=== PATIENT | male | born 1965 ===

== ENCOUNTER 2021-12-20 18:30 | Inpatient (IN) | payer MEDICAID ==
--- NOTE | 2021-12-20 18:57 | Cat Scan Report ---
CT head/brain wo con INDICATION / CLINICAL INFORMATION: 56 years Male; Stroke symptoms. TECHNIQUE: Routine CT head without contrast. All CT scans at this location are performed using CT dos e reduction for ALARA by means of automated exposure control. Motion artifact present. COMPARISON: None. FINDINGS: BRAIN / INTRACRANIAL CONTENTS: No acute hemorrhage, mass effect, midline shift, hydrocephalus, or acu te, large territorial infarct. Mild to moderate, diffuse cerebral and mild cerebellar atrophy. Mild degree of hippocampal atrophy worthy ggested bilaterally. There are mild areas of decreased attenuation in the white matter of the cerebral hemispheres. These are nonspecific findings and may be related to microangiopathy (hypertension, diabetes, atheroscleros is), given the patient's age. It might be difficult to evaluate for small areas of ischemia without d iffusion imaging by MRI. Pontine disease noted. CRANIOCERVICAL JUNCTION: No significant abnormality. ORBITS: No significant abnormality of visualized orbits. SINUSES / MASTOIDS: Mild to moderate mucosal thickening in the ethmoids. There is also partial opacif ication of the mastoids. ADDITIONAL FINDINGS: Atherosclerotic disease is seen in the anterior and posterior circulation. IMPRESSION: 1. No focal mass, hemorrhage, hydrocephalus, or acute, large territorial infarct. CODE STROKE: Exam Completed (GEODESIST/CDT): 12/20/2021 5:44 PM Exam Reviewed (GEODESIST/CDT): 5:48 PM Time of Communication (GEODESIST/CDT): 5:51 PM Licensed Practitioner Receiving Report: Dr. Kent Signer Name: Bj Smith MD, III Signed: 12/20/2021 6:53 PM Workstation Name: [id number]
[2021-12-20 19:15] LABS: Basophils # (Auto) 0.1 K/mm3 (0.0-0.1); Basophils % (Auto) 0.9 % (0.0-1.8); Eosinophils % (Auto) 11.3 % (0.0-4.3); Hematocrit 32.1 % (35.5-45.6); Hemoglobin 10.3 gm/dl (11.8-15.2); Lymphocytes % (Auto) 11.7 % (13.4-35.0); Mean Corpuscular HGB Conc 32 % (32-34); Mean Corpuscular Volume 81 fl (84-94); Monocytes # (Auto) 0.4 K/mm3 (0.0-0.8); Monocytes % (Auto) 4.6 % (0.0-7.3); Platelet Count 446 K/mm3 (140-440); Red Blood Count 3.96 M/mm3 (3.65-5.03); Red Cell Distribution Width 17.4 % (13.2-15.2)
[2021-12-20 19:24] LABS: INR 1.04 (0.87-1.13)
--- NOTE | 2021-12-20 19:24 | Emergency Department Report ---
ED Altered Mental Status HPI - General Chief Complaint: Hypoglycemia Stated Complaint: POSS CVA Time Seen by Provider: 12/20/21 18:33 Source: EMS Mode of arrival: Stretcher Limitations: Language Barrier - History of Present Illness Initial Comments: Patient is 56 years old male with history of diabetes, hypertension, chronic kidney disease, seizure and bilateral below-knee amputation. Patient brought to the emergency room via EMS from home for evaluation of altered mental status. According to the EMS report that patient has been evaluated by EMS twice today for similar symptoms. EMS stated that initially his blood sugar was 45 he was given D50 and refused to come to the hospital. Second time blood pressure was 60 and he was been given D50 with his blood pressure going to 250 however patient still with altered mental status. EMS reported that patient had a generalized tonic-clonic seizure for which patient received 2 mg of Ativan. Upon arrival to the ER patient is alert however he is altered unable to answer question appropriately. Code stroke immediately initiated and patient examined by Dr. Rios. Patient also had a stat CT brain without contrast which was negative for acute finding. MD Complaint: altered mental status, confusion, decreased responsiveness -: This morning Severity: severe Consistency of Symptoms: waxing and waning Context: diabetes - Related Data Allergies Allergy/AdvReac Type Severity Reaction Status Date / Time Unable to Assess Allergy Unverified 12/20/21 19:17 ED Review of Systems ROS: Stated complaint: POSS CVA Other details as noted in HPI Comment: Unobtainable due to pts medical conditions ED Past Medical Hx - Past Medical History Previous Medical History?: Yes Hx Hypertension: Yes Hx Diabetes: Yes - Surgical History Past Surgical History?: Yes Additional Surgical History: bilateral BKA - Social History Smoking Status: Unknown if ever smoked ED Physical Exam - General Limitations: Language Barrier General appearance: alert, in no apparent distress - Head Head exam: Present: atraumatic, normocephalic, normal inspection - Eye Eye exam: Present: normal appearance - ENT ENT exam: Present: normal exam, normal orophraynx, mucous membranes moist - Neck Neck exam: Present: normal inspection, full ROM. Absent: tenderness, meningismus - Respiratory Respiratory exam: Present: normal lung sounds bilaterally - Cardiovascular Cardiovascular Exam: Present: bradycardia - GI/Abdominal GI/Abdominal exam: Present: soft, normal bowel sounds. Absent: distended, te nderness, guarding, rebound, rigid, mass, bruit, pulsatile mass, hernia - Neurological Exam Neurological exam: Present: alert, altered - Psychiatric Psychiatric exam: Present: flat affect - Skin Skin exam: Present: warm, dry, intact, normal color ED Course Vital Signs 12/20/21 12/20/21 12/20/21 19:03 19:13 20:31 Temperature 94.3 F L 93.7 F L Pulse Rate 59 L Respiratory 13 Rate Blood Pressure 129/68 O2 Sat by Pulse 100 100 Oximetry - Lab Data Result diagrams: 12/20/21 Unknown 12/20/21 Unknown Lab Results 12/20/21 12/20/21 12/20/21 Range/Units Unknown Unknown Unknown WBC 9.0 (4.5-11.0) K/mm3 RBC 3.96 (3.65-5.03) M/mm3 Hgb 10.3 L (11.8-15.2) gm/dl Hct 32.1 L (35.5-45.6) % MCV 81 L (84-94) fl MCH 26 L (28-32) pg MCHC 32 (32-34) % RDW 17.4 H (13.2-15.2) % Plt Count 446 H (140-440) K/mm3 Lymph % (Auto) 11.7 L (13.4-35.0) % [place] % (Auto) 4.6 (0.0-7.3) % Eos % (Auto) 11.3 H (0.0-4.3) % Baso % (Auto) 0.9 (0.0-1.8) % Lymph # (Auto) 1.0 L (1.2-5.4) K/mm3 [place] # (Auto) 0.4 (0.0-0.8) K/mm3 Eos # (Auto) 1.0 H (0.0-0.4) K/mm3 Baso # (Auto) 0.1 (0.0-0.1) K/mm3 Seg Neutrophils % 71.5 H (40.0-70.0) % Seg Neutrophils # 6.4 (1.8-7.7) K/mm3 PT 14.8 (12.2-14.9) Sec. INR 1.04 (0.87-1.13) APTT 38.6 H (24.2-36.6) Sec. Thrombin Time 18.8 (15.1-19.6) Sec. Sodium 142 (137-145) mmol/L Potassium 3.9 (3.6-5.0) mmol/L Chloride 101.8 (98-107) mmol/L Carbon Dioxide 22 (22-30) mmol/L Anion Gap 22 mmol/L BUN 51 H (9-20) mg/dL Creatinine 4.6 H (0.8-1.3) mg/dL Estimated GFR 13 ml/min BUN/Creatinine Ratio 11 % Glucose 86 (75-100) mg/dL Calcium 8.0 L (8.4-10.2) mg/dL Total Creatine Kinase 74 (55-170) units/L CK-MB (CK-2) 5.3 H (0.0-4.0) ng/mL CK-MB (CK-2) Rel Index 7.1 H (0-4) Troponin T 0.095 H (0.00-0.029) ng/mL Plasma/Serum Alcohol (0-0.07) % // Range/Units Unknown WBC (4.5-11.0) K/mm3 RBC (3.65-5.03) M/mm3 Hgb (11.8-15.2) gm/dl Hct (35.5-45.6) % MCV (84-94) fl MCH (28-32) pg MCHC (32-34) % RDW (13.2-15.2) % Plt Count (140-440) K/mm3 Lymph % (Auto) (13.4-35.0) % [place] % (Auto) (0.0-7.3) % Eos % (Auto) (0.0-4.3) % Baso % (Auto) (0.0-1.8) % Lymph # (Auto) (1.2-5.4) K/mm3 [place] # (Auto) (0.0-0.8) K/mm3 Eos # (Auto) (0.0-0.4) K/mm3 Baso # (Auto) (0.0-0.1) K/mm3 Seg Neutrophils % (40.0-70.0) % Seg Neutrophils # (1.8-7.7) K/mm3 PT (12.2-14.9) Sec. INR (0.87-1.13) APTT (24.2-36.6) Sec. Thrombin Time (15.1-19.6) Sec. Sodium (137-145) mmol/L Potassium (3.6-5.0) mmol/L Chloride (98-107) mmol/L Carbon Dioxide (22-30) mmol/L Anion Gap mmol/L BUN (9-20) mg/dL Creatinine (0.8-1.3) mg/dL Estimated GFR ml/min BUN/Creatinine Ratio % Glucose (75-100) mg/dL Calcium (8.4-10.2) mg/dL Total Creatine Kinase (55-170) units/L CK-MB (CK-2) (0.0-4.0) ng/mL CK-MB (CK-2) Rel Index (0-4) Troponin T (0.00-0.029) ng/mL Plasma/Serum Alcohol < 0.01 (0-0.07) % - EKG Data -: EKG Interpreted by Ct EKG shows normal: sinus rhythm Rate: bradycardia Interpretation: no acute changes - Radiology Data Radiology results: report reviewed - Medical Decision Making Patient is 56 years old male with history of insulin-dependent diabetes, hypertension, chronic kidney disease, seizure and bilateral below-knee amputation. Patient brought to the emergency room via EMS from home for olegario luation of altered mental status. According to the EMS report that patient has been evaluated by EMS twice today for similar symptoms. EMS stated that initially his blood sugar was 45 he was given D50 and refused to come to the hospital. Second time blood pressure was 60 and he was been given D50 with his blood pressure going to 250 however patient still with altered mental status. EMS reported that patient had a generalized tonic-clonic seizure for which patient received 2 mg of Ativan. Upon arrival to the ER patient is alert however he is altered unable to answer question appropriately. Code stroke immediately initiated and patient examined by Dr. Rios. Patient also had a stat CT brain without contrast which was negative for acute finding. Patient blood glucose also dropped to 60 in the emergency room patient received dextrose 50. Patient also started on dextrose 10% at 150 mL/h. Labs reviewed and showed a creatinine of 4.5. Troponin slightly elevated however this is most likely related to elevated creatinine. EKG is unremarkable. Patient sister arrived and able to provide more history. She stated that patient was in [place] and because of his bilateral knee amputation she decided to move him with her here in [place]. She stated that he had a right sided stroke last year. She also reports that he had history of seizure. She stated that he was admitted to another hospital 2 weeks ago for seizure and found that he has chronic kidney disease. She brought a medication list that did not show insulin however showed glipizide. I discussed the patient with Dr. Burns, he agreed to admit the patient to medical service for further management. Critical Care Time: Yes Critical care time in (mins) excluding proc time.: 35 Critical care attestation.: If time is entered above; I have spent that time in minutes in the direct care of this critically ill patient, excluding procedure time. ED Disposition Clinical Impression: Acute metabolic encephalopathy due to hypoglycemia, Seizure Disposition: ADMITTED INPATIENT Is pt being admited?: Yes Condition: Stable Referrals: PRIMARY CARE, [Primary Care Provider] - 3-5 Days
[2021-12-20 19:25] LABS: Partial Thromboplastin Time 38.6 Sec. (24.2-36.6); Thrombin Time 18.8 Sec. (15.1-19.6)
[2021-12-20 19:29] LABS: Creatine Kinase MB 5.3 ng/mL (0.0-4.0)
[2021-12-20] MEDS ORDERED: SODIUM CHLORIDE 0.9% 1000 ML 1,000 ML IV ONE (19:44)
[2021-12-20] MEDS ORDERED: DEXTROSE 10% IN WATER 1,000 ML IV SCH ×2 (20:00→22:00)
[2021-12-20] MEDS ORDERED: DEXTROSE 50% IN WATER (25GM) 50 ML SYRINGE IV ONE ×4 (20:09→20:20)
[2021-12-20] MEDS ORDERED: levETIRAcetam 1000 MG/NS 0.75% 1,000 MG/100 ML BAG IV ONE (20:34)
[2021-12-20] MEDS ORDERED: ACETAMINOPHEN 325 MG TAB PO PRN (21:51)
[2021-12-20] MEDS ORDERED: DEXTROSE 50% IN WATER (25GM) 50 ML SYRINGE IV PRN (21:51)
[2021-12-20] MEDS ORDERED: ALBUTEROL 2.5 MG/3 ML NEBU IH PRN (21:51)
[2021-12-20] MEDS ORDERED: ONDANSETRON 4 MG/2 ML INJ IV PRN (21:51)
[2021-12-20] MEDS ORDERED: HYDROmorphone 1 MG/1 ML INJ IV PRN (21:51)
--- NOTE | 2021-12-20 22:00 | History and Physical Report ---
History of Present Illness Date of examination: 12/20/21 Date of admission: 12/20/21 Chief complaint: Altered mental status Hypoglycemia History of present illness: 56 years old male with history of diabetes, hypertension, chronic kidney disease, seizure and bilateral below-knee amputation was brought to the emergency room via EMS from home for evaluation of altered mental status. According to the EMS report that patient has been evaluated by EMS twice today for similar symptoms. EMS stated that initially his blood sugar was 45 he was given D50 and refused to come to the hospital. Second time blood pressure was 60 and he was been given D50 with his blood pressure going to 250 however patient still with altered mental status. EMS reported that patient had a generalized tonic-clonic seizure for which patient received 2 mg of Ativan. Upon arrival to the ER patient is alert however he is altered unable to answer question appropriately. Code stroke immediately initiated and patient examined by Dr. Rios. Patient also had a stat CT brain without contrast which was negative for acute finding. In the emergency room patient blood glucose is 86 so going to admit the patient we will put the patient on D10 at the rate of 125 cc/h we will hold her diabetic medication will consult neurology for evaluation Past History Past Medical History: diabetes, hypertension, renal failure, seizures Past Surgical History: Other (Bilateral below-knee amputation) Social history: other (Unknown if ever smoked) Family history: no significant family history Medications and Allergies Allergies Allergy/AdvReac Type Severity Reaction Status Date / Time Unable to Assess Allergy Unverified 12/20/21 19:17 Active Meds: Active Medications Acetaminophen (Acetaminophen 325 Mg Tab) 650 mg PO Q4H PRN PRN Reason: Pain MILD(1-3)/Fever >100.5/MELTON Albuterol (Albuterol 2.5 Mg/3 Ml Nebu) 2.5 mg IH Q3HRT PRN PRN Reason: Shortness Of Breath Albuterol/Ipratropium (Ipratropium/Albuterol Sulfate 3 Ml Ampul.Neb) 1 ampul IH Q6HRT [facility] Dextrose (Dextrose 50% In Water (25gm) 50 Ml Syringe) 50 ml IV Q30MIN PRN; Protocol PRN Reason: Hypoglycemia Famotidine (Famotidine 20 Mg/2 Ml Inj) 20 mg IV BID [facility] Heparin Sodium (Porcine) (Heparin 5,000 Unit/1 Ml Vial) 5,000 unit SUB-Q Q12HR [facility] Hydromorphone HCl (Hydromorphone 1 Mg/1 Ml Inj) 0.5 mg IV Q3H PRN PRN Reason: Pain , Severe (7-10) Dextrose (D10w) 1,000 mls @ 150 mls/hr IV DIRECT ROSEND[facility] Dextrose (D10w) 1,000 mls @ 125 mls/hr IV DIRECT [facility] Insulin Human Lispro (Insulin Lispro 100 Unit/Ml) 0 unit SUB-Q Q6HR [facility]; Protocol Morphine Sulfate (Morphine 2 Mg/1 Ml Inj) 2 mg IV Q4H PRN PRN Reason: Pain, Moderate (4-6) Ondansetron HCl (Ondansetron 4 Mg/2 Ml Inj) 4 mg IV Q8H PRN PRN Reason: Nausea And Vomiting Sodium Chloride (Sodium Chloride 0.9% 10 Ml Flush Syringe) 10 ml IV BID ROSEND[facility] Sodium Chloride (Sodium Chloride 0.9% 10 Ml Flush Syringe) 10 ml IV PRN PRN PRN Reason: LINE FLUSH Review of Systems All systems: negative Constitutional: fatigue, malaise, lethargy Neurological: change in mentation, confusion, other (Unresponsiveness) Exam - Constitutional Vitals: Temp Pulse Resp BP Pulse Ox 93.7 F L 59 L 13 129/68 100 12/20/21 20:31 12/20/21 19:03 12/20/21 19:03 12/20/21 19:03 12/20/21 19:13 General appearance: Present: mild distress, cachectic - EENT Eyes: Present: PERRL ENT: hearing intact, clear oral mucosa - Neck Neck: Present: supple, normal ROM - Respiratory Respiratory effort: normal Respiratory: bilateral: diminished - Cardiovascular Heart Sounds: Present: S1 & S2. Absent: rub, click - Extremities Extremities: pulses symmetrical, No edema Peripheral Pulses: within normal limits - Abdominal General gastrointestinal: Present: soft, non-tender, non-distended, normal bowel sounds Male genitourinary: Present: normal - Integumentary Integumentary: Present: clear, warm, dry - Musculoskeletal Musculoskeletal: gait normal, strength equal bilaterally - Psychiatric Psychiatric: other (Patient is altered mental status) - Neurologic Neurologic: CNII-XII intact, moves all extremities, other (Patient is altered mental status) HEART Score - HEART Score Troponin: Troponin T 0.095 ng/mL (0.00-0.029) H 12/20/21 Unknown Results - Labs CBC & Chem 7: 12/20/21 Unknown 12/20/21 Unknown Labs: Laboratory Last Values WBC 9.0 K/mm3 (4.5-11.0) 12/20/21 Unknown RBC 3.96 M/mm3 (3.65-5.03) 12/20/21 Unknown Hgb 10.3 gm/dl (11.8-15.2) L 12/20/21 Unknown Hct 32.1 % (35.5-45.6) L 12/20/21 Unknown MCV 81 fl (84-94) L 12/20/21 Unknown MCH 26 pg (28-32) L 12/20/21 Unknown MCHC 32 % (32-34) 12/20/21 Unknown RDW 17.4 % (13.2-15.2) H 12/20/21 Unknown Plt Count 446 K/mm3 (140-440) H 12/20/21 Unknown Lymph % (Auto) 11.7 % (13.4-35.0) L 12/20/21 Unknown [place] % (Auto) 4.6 % (0.0-7.3) 12/20/21 Unknown Eos % (Auto) 11.3 % (0.0-4.3) H 12/20/21 Unknown Baso % (Auto) 0.9 % (0.0-1.8) 12/20/21 Unknown Lymph # (Auto) 1.0 K/mm3 (1.2-5.4) L 12/20/21 Unknown [place] # (Auto) 0.4 K/mm3 (0.0-0.8) 12/20/21 Unknown Eos # (Auto) 1.0 K/mm3 (0.0-0.4) H 12/20/21 Unknown Baso # (Auto) 0.1 K/mm3 (0.0-0.1) 12/20/21 Unknown Seg Neutrophils % 71.5 % (40.0-70.0) H 12/20/21 Unknown Seg Neutrophils # 6.4 K/mm3 (1.8-7.7) 12/20/21 Unknown PT 14.8 Sec. (12.2-14.9) 12/20/21 Unknown INR 1.04 (0.87-1.13) 12/20/21 Unknown APTT 38.6 Sec. (24.2-36.6) H 12/20/21 Unknown Thrombin Time 18.8 Sec. (15.1-19.6) 12/20/21 Unknown Sodium 142 mmol/L (137-145) 12/20/21 Unknown Potassium 3.9 mmol/L (3.6-5.0) 12/20/21 Unknown Chloride 101.8 mmol/L (98-107) 12/20/21 Unknown Carbon Dioxide 22 mmol/L (22-30) 12/20/21 Unknown Anion Gap 22 mmol/L 12/20/21 Unknown BUN 51 mg/dL (9-20) H 12/20/21 Unknown Creatinine 4.6 mg/dL (0.8-1.3) H 12/20/21 Unknown Estimated GFR 13 ml/min 12/20/21 Unknown BUN/Creatinine Ratio 11 % 12/20/21 Unknown Glucose 86 mg/dL (75-100) 12/20/21 Unknown Lactic Acid 1.80 mmol/L (0.7-2.0) 12/20/21 21:07 Calcium 8.0 mg/dL (8.4-10.2) L 12/20/21 Unknown Total Creatine Kinase 74 units/L (55-170) 12/20/21 Unknown CK-MB (CK-2) 5.3 ng/mL (0.0-4.0) H 12/20/21 Unknown CK-MB (CK-2) Rel Index 7.1 (0-4) H 12/20/21 Unknown Troponin T 0.095 ng/mL (0.00-0.029) H 12/20/21 Unknown Plasma/Serum Alcohol < 0.01 % (0-0.07) 12/20/21 Unknown - Imaging and Cardiology CT Scan - head: report reviewed Assessment and Plan VTE prophylaxis?: Chemical Plan of care discussed with patient/family: Yes - Patient Problems (1) Acute metabolic encephalopathy due to hypoglycemia Current Visit: Yes Status: Acute Plan to address problem: Admit the patient to the medical telemetry. Metabolic encephalopathy due to h ypoglycemia and chronic kidney disease. We put the patient on D10 at the rate of 125 cc/h. Oxygen by nasal cannula 3 L/min DuoNeb by nebulizer every 4 hours. Reconsult neurology for evaluation. Recheck CBC BMP in the morning (2) Hypoglycemia Current Visit: Yes Status: Acute Plan to address problem: We put the patient on D10 at the rate of 125 cc/h. Oxygen by nasal cannula 3 L/min DuoNeb by nebulizer every 4 hours. Reconsult neurology for evaluation. Recheck CBC BMP in the morning (3) Diabetes Current Visit: Yes Status: Acute Plan to address problem: Humalog sliding scale every 6 hours with low-dose coverage. Diabetic education. Recheck BMP in the morning (4) Hypertension Current Visit: Yes Status: Acute Plan to address problem: Hydralazine 10 mg IV every 6 hours as needed. We will monitor the blood pressure closely (5) Acute kidney injury superimposed on CKD Current Visit: Yes Status: Acute Plan to address problem: Avoid nephrotoxic drug. Renally dose medication. D5 W at the rate of 125 cc/h. Recheck BMP in the morning. Nephrology consult (6) Seizure Current Visit: Yes Status: Acute Plan to address problem: Stable. We will continue the home medication. EEG. Will consult neurology for evaluation we also check ammonia level. (7) DVT prophylaxis Current Visit: Yes Status: Acute Plan to address problem: Heparin 5000 units subcu every 12 hours for DVT prophylaxis. Pepcid 20 mg IV every 12 hours for GI prophylaxis. Patient is a full code
[2021-12-21] MEDS: FAMOTIDINE 20 MG/2 ML INJ IV SCH ×2 (01:19→15:13)
[2021-12-21] MEDS: HEPARIN 5,000 UNIT/1 ML VIAL SUB-Q SCH ×3 (01:19→22:34)
[2021-12-21] MEDS: INSULIN LISPRO 100 UNIT/ML SUB-Q SCH ×2 (01:23→05:23)
[2021-12-21] MEDS: IPRATROPIUM/ALBUTEROL SULFATE 3 ML AMPUL.NEB IH SCH ×6 (01:30→21:00)
[2021-12-21 05:27] LABS: Basophils # (Auto) 0.1 K/mm3 (0.0-0.1); Basophils % (Auto) 0.9 % (0.0-1.8); Eosinophils % (Auto) 9.3 % (0.0-4.3); Hematocrit 30.4 % (35.5-45.6); Hemoglobin 9.8 gm/dl (11.8-15.2); Lymphocytes # (Auto) 1.4 K/mm3 (1.2-5.4); Lymphocytes % (Auto) 13.1 % (13.4-35.0); Mean Corpuscular HGB Conc 32 % (32-34); Mean Corpuscular Volume 81 fl (84-94); Monocytes # (Auto) 0.7 K/mm3 (0.0-0.8); Monocytes % (Auto) 6.7 % (0.0-7.3); Platelet Count 424 K/mm3 (140-440); Red Blood Count 3.75 M/mm3 (3.65-5.03)
[2021-12-21 05:46] LABS: Calcium 7.7 mg/dL (8.4-10.2)
--- NOTE | 2021-12-21 08:39 | Consultation ---
History of Present Illness - Reason for Consult Consult date: 12/21/21 acute renal failure, chronic renal failure - History of Present Illness This is a 56 year old male who was brought into the hospital via EMS for Altered mental status. Patient was found to be hypoglycemic with blood glucose levels in 40-60's. Patient was treated with D50 drip. Pertinent labs also revealed an elevated serum creatinine of 4.6. Baseline serum creatinine unknown. Patient have history of Hypertension, Diabetes Mellitus, Seizure and Bilateral BKA. We are being consulted for management of this patient's severe renal failure. Past History Past Medical History: diabetes, hypertension, renal failure, seizures Past Surgical History: Other (Bilateral below-knee amputation) Social history: other (Unknown if ever smoked) Family history: no significant family history Medications and Allergies Allergies Allergy/AdvReac Type Severity Reaction Status Date / Time Unable to Assess Allergy Unverified 12/20/21 19:17 Active Meds: Active Medications Acetaminophen (Acetaminophen 325 Mg Tab) 650 mg PO Q4H PRN PRN Reason: Pain MILD(1-3)/Fever >100.5/MELTON Albuterol (Albuterol 2.5 Mg/3 Ml Nebu) 2.5 mg IH Q3HRT PRN PRN Reason: Shortness Of Breath Albuterol/Ipratropium (Ipratropium/Albuterol Sulfate 3 Ml Ampul.Neb) 1 ampul IH Q6HRT [facility] Last Admin: 12/21/21 08:32 Dose: 1 ampul Dextrose (Dextrose 50% In Water (25gm) 50 Ml Syringe) 50 ml IV Q30MIN PRN; Protocol PRN Reason: Hypoglycemia Famotidine (Famotidine 20 Mg/2 Ml Inj) 20 mg IV QAM [facility] Last Admin: 12/21/21 01:19 Dose: Not Given Heparin Sodium (Porcine) (Heparin 5,000 Unit/1 Ml Vial) 5,000 unit SUB-Q Q12HR [facility] Last Admin: 12/21/21 01:19 Dose: Not Given Hydromorphone HCl (Hydromorphone 1 Mg/1 Ml Inj) 0.5 mg IV Q3H PRN PRN Reason: Pain , Severe (7-10) Morphine Sulfate (Morphine 2 Mg/1 Ml Inj) 2 mg IV Q4H PRN PRN Reason: Pain, Moderate (4-6) Ondansetron HCl (Ondansetron 4 Mg/2 Ml Inj) 4 mg IV Q8H PRN PRN Reason: Nausea And Vomiting Sodium Chloride (Sodium Chloride 0.9% 10 Ml Flush Syringe) 10 ml IV BID [facility] Last Admin: 12/21/21 01:20 Dose: 10 ml Sodium Chloride (Sodium Chloride 0.9% 10 Ml Flush Syringe) 10 ml IV PRN PRN PRN Reason: LINE FLUSH Review of Systems ROS unobtainable: due to mental status Exam - Vital Signs Vital signs: Vital Signs Pulse Ox 100 12/20/21 18:53 - General Appearance General appearance: fatigue EENT: ATNC, PERRL Neck: Present: neck supple, trachea midline Respiratory: Decreased Breath Sounds Heart: S1S2 Gastrointestinal: Present: normoactive bowel sounds Neurologic: other (Awake) Musculoskeletal: Present: other (Bilateral BKA) Results - Lab Results 12/21/21 04:56 12/21/21 04:56 Most recent lab results Calcium 7.7 mg/dL (8.4-10.2) L 12/21/21 04:56 Assessment and Plan Assessment: Severe Renal Failure, questionable CKD S/P Hypoglycemia AMS Hypertension Diabetes Mellitus Anemia Plan: Renal labs reviewed. Serum creatinine 4.4 today, prior was 4.6. Baseline serum creatinine unknown. No urine output recorded. Ordered Strict I/O's daily and ordered bladder scan. Has history of DM And HTN so could have advanced CKD Will obtain urine lytes, protein and eosinophils Will obtain renal ultrasound Start NS@ 75 ml/hr Avoid nephrotoxic agents Renally dose medications Strict I/O's daily Obtain daily weights May need hemodialysis initiation if renal function shows no improvement or worsen Will monitor renal function closely Plan of care reviewed by Dr. Barbosa
[2021-12-21] MEDS ORDERED: SODIUM CHLORIDE 0.9% 1000 ML 1,000 ML IV SCH (09:30)
--- NOTE | 2021-12-21 10:13 | Consultation ---
History of Present Illness Consult date: 12/21/21 Reason for Consult: AMS Chief complaint: The patient was admitted for AMS , reviewed admitting notes , There is some improvement per patient is speaking like has had dysarthia . Past History Past Medical History: diabetes, hypertension, renal failure, seizures Past Surgical History: Other (Bilateral below-knee amputation) Social history: other (Unknown if ever smoked) Family history: no significant family history Medications and Allergies Allergies Allergy/AdvReac Type Severity Reaction Status Date / Time Unable to Assess Allergy Unverified 12/20/21 19:17 Active Meds: Active Medications Acetaminophen (Acetaminophen 325 Mg Tab) 650 mg PO Q4H PRN PRN Reason: Pain MILD(1-3)/Fever >100.5/MELTON Albuterol (Albuterol 2.5 Mg/3 Ml Nebu) 2.5 mg IH Q3HRT PRN PRN Reason: Shortness Of Breath Albuterol/Ipratropium (Ipratropium/Albuterol Sulfate 3 Ml Ampul.Neb) 1 ampul IH Q6HRT [facility] Last Admin: 12/21/21 08:32 Dose: 1 ampul Dextrose (Dextrose 50% In Water (25gm) 50 Ml Syringe) 50 ml IV Q30MIN PRN; Protocol PRN Reason: Hypoglycemia Famotidine (Famotidine 20 Mg/2 Ml Inj) 20 mg IV QAM [facility] Last Admin: 12/21/21 01:19 Dose: Not Given Heparin Sodium (Porcine) (Heparin 5,000 Unit/1 Ml Vial) 5,000 unit SUB-Q Q12HR [facility] Last Admin: 12/21/21 01:19 Dose: Not Given Hydromorphone HCl (Hydromorphone 1 Mg/1 Ml Inj) 0.5 mg IV Q3H PRN PRN Reason: Pain , Severe (7-10) Sodium Chloride (Nacl 0.9% 1000 Ml) 1,000 mls @ 75 mls/hr IV DIRECT [facility] Morphine Sulfate (Morphine 2 Mg/1 Ml Inj) 2 mg IV Q4H PRN PRN Reason: Pain, Moderate (4-6) Ondansetron HCl (Ondansetron 4 Mg/2 Ml Inj) 4 mg IV Q8H PRN PRN Reason: Nausea And Vomiting Sodium Chloride (Sodium Chloride 0.9% 10 Ml Flush Syringe) 10 ml IV BID [facility] Last Admin: 12/21/21 01:20 Dose: 10 ml Sodium Chloride (Sodium Chloride 0.9% 10 Ml Flush Syringe) 10 ml IV PRN PRN PRN Reason: LINE FLUSH Physical Examination - Vital Signs Vital Signs: Vital Signs Pulse Ox 100 12/20/21 18:53 - Physical Exam Narrative exam: The patient is alert , there is dysarthria, The patient is able to move all 4 extremity , there is amputation in the right LE , gait is not tested . Results - Laboratory Findings CBC and BMP: 12/21/21 04:56 12/21/21 04:56 Abnormal Lab Findings: Abnormal Labs 12/20/21 12/20/21 12/20/21 23:02 Unknown Unknown Hgb 10.3 L Hct 32.1 L MCV 81 L MCH 26 L RDW 17.4 H Plt Count 446 H Lymph % (Auto) 11.7 L Eos % (Auto) 11.3 H Lymph # (Auto) 1.0 L Eos # (Auto) 1.0 H Seg Neutrophils % 71.5 H APTT 38.6 H BUN Creatinine Glucose POC Glucose 171 H Calcium CK-MB (CK-2) CK-MB (CK-2) Rel Index Troponin T 12/20/21 12/21/21 12/21/21 Unknown 04:56 04:56 Hgb 9.8 L Hct 30.4 L MCV 81 L MCH 26 L RDW 17.0 H Plt Count Lymph % (Auto) 13.1 L Eos % (Auto) 9.3 H Lymph # (Auto) Eos # (Auto) 1.0 H Seg Neutrophils % APTT BUN 51 H 48 H Creatinine 4.6 H 4.4 H Glucose 132 H POC Glucose Calcium 8.0 L 7.7 L CK-MB (CK-2) 5.3 H CK-MB (CK-2) Rel Index 7.1 H Troponin T 0.095 H 12/21/21 05:21 Hgb Hct MCV MCH RDW Plt Count Lymph % (Auto) Eos % (Auto) Lymph # (Auto) Eos # (Auto) Seg Neutrophils % APTT BUN Creatinine Glucose POC Glucose 150 H Calcium CK-MB (CK-2) CK-MB (CK-2) Rel Index Troponin T Assessment and Plan 1. Encephalopathy - AMS rule out CVA since there is dysarthria . 2. Continue All Home Medications . 3. Minimize Sedation . 4. MRI Brain no contrast. 5. Call Back with Questions . Dr. Garcia
--- NOTE | 2021-12-21 12:33 | Ultrasound Report ---
ULTRASOUND RENAL INDICATION / CLINICAL INFORMATION: renal failure. COMPARISON: None available. FINDINGS: RIGHT KIDNEY: Length = 10.4 cm. - Echogenicity: Mildly echogenic. - Parenchymal Thickness: Normal. - Hydronephrosis: None. - Cyst / Mass: None. - Stones: None seen. LEFT KIDNEY: Length = 11.9 cm. - Echogenicity: Normal. - Parenchymal Thickness: Normal. - Hydronephrosis: None. - Cyst / Mass: None. - Stones: None seen. URINARY BLADDER: Layering debris/proteinaceous material with no bladder wall thickening or obvious ma ss. No obvious stone disease. FREE FLUID: None. ADDITIONAL FINDINGS: None. IMPRESSION: 1. Abnormal appearance of the urinary bladder containing layering debris/proteinaceous material which could represent blood products or infectious material. The bladder otherwise appears unremarkable wi th no wall thickening or mass. 2. Slightly echogenic appearance of the right kidney compared to the left can be seen with medical re nal disease or prior insult. Signer Name: Jerardo Schuster MD Signed: 12/21/2021 12:29 PM Workstation Name: [id number]
--- NOTE | 2021-12-21 13:49 | Progress Note ---
Assessment and Plan Assessment and plan: #Acute metabolic encephalopathy #[id number] type 2 diabetes mellitus with hyperglycemia #Seizure disorder #Acute cystitis with purulence Multifactorial etiology including hypoglycemia (that originally required D50 x2), seizures, and acute cystitis -CT head noncontrast unremarkable. Pending MRI brain to rule out possible CVA in the setting of dysarthria. Pending blood culture, urinalysis, and urine culture. Starting Rocephin 2 g every 24 hours in the setting of purulent discharge from penis. Continue IV fluid resuscitation and telemetry. Discontinued insulin regiment. Blood glucose goal [id number] while inpatient. Neurology consulted; appreciate recs. Will call family to determine seizure medication. Continue to monitor #TO on CKD stage IV -Creatinine 4.4 (baseline unknown) Nephrology consulted; appreciate recs. Renally dose medications, avoid nephrotoxic drugs, and continue renal diet. #Microcytic anemia Hemoglobin 9.8 Pending iron and TIBC studies. Transfuse if hemoglobin <7 or patient becomes symptomatic. #Acute hypoxic respiratory failure Currently on 3 L nasal cannula (baseline unknown) Likely secondary to possible volume overload in the setting of significant TO Wean as tolerated. As encephalopathy improves, incentive spirometry can be ordered. #Hypocalcemia Calcium 7.7 Repleted. Continue to monitor. #Elevated troponin Troponin 0 0.[address] elevation or changes consistent with STEMI. Likely secondary to renal failure. #Hypertension - home medications: Currently unknown - current medications: Currently holding. Can start if systolic >160 or diastolic >90. - SBP goal <160 and DBP goal <90 while inpatient - continue to monitor #Advanced care planning -Disease education conducted, care plan discussed, diagnoses discussed, prognosis discussed, and patient acknowledges understanding with care plan -Time: +30 min Disposition Plan: Continue medical management Total Time Spent with Patient (Minutes): 45 minutes History Interval history: No acute events overnight. Hospitalist Physical - Constitutional Vitals: Temp Pulse Resp BP Pulse Ox 98.5 F 87 18 153/82 93 12/21/21 11:52 12/21/21 11:52 12/21/21 11:52 12/21/21 11:52 12/21/21 11:52 General appearance: Present: no acute distress, well-nourished - EENT Eyes: Present: PERRL, EOM intact ENT: hearing intact, clear oral mucosa - Neck Neck: Present: supple, normal ROM - Respiratory Respiratory effort: normal Respiratory: bilateral: diminished (On 2 L nasal cannula) - Cardiovascular Rhythm: regular Heart Sounds: Present: S1 & S2 - Extremities Extremities: no ischemia, pulses intact, pulses symmetrical, No edema, normal temperature, normal color, abnormal (Bilateral BKA's) Peripheral Pulses: within normal limits - Abdominal General gastrointestinal: soft, non-tender, non-distended, normal bowel sounds - Integumentary Integumentary: Present: clear, warm, dry - Psychiatric Psychiatric: other (Unable to fully assess as patient is encephalopathic) - Neurologic Neurologic: CNII-XII intact, moves all extremities, other (Encephalopathic) - Allied Health Allied health notes reviewed: nursing HEART Score - HEART Score Troponin: Troponin T 0.095 ng/mL (0.00-0.029) H 12/20/21 Unknown Results - Labs CBC & Chem 7: 12/21/21 04:56 12/21/21 04:56 Labs: Laboratory Last Values WBC 10.5 K/mm3 (4.5-11.0) 12/21/21 04:56 RBC 3.75 M/mm3 (3.65-5.03) 12/21/21 04:56 Hgb 9.8 gm/dl (11.8-15.2) L 12/21/21 04:56 Hct 30.4 % (35.5-45.6) L 12/21/21 04:56 MCV 81 fl (84-94) L 12/21/21 04:56 MCH 26 pg (28-32) L 12/21/21 04:56 MCHC 32 % (32-34) 12/21/21 04:56 RDW 17.0 % (13.2-15.2) H 12/21/21 04:56 Plt Count 424 K/mm3 (140-440) 12/21/21 04:56 Lymph % (Auto) 13.1 % (13.4-35.0) L 12/21/21 04:56 [place] % (Auto) 6.7 % (0.0-7.3) 12/21/21 04:56 Eos % (Auto) 9.3 % (0.0-4.3) H 12/21/21 04:56 Baso % (Auto) 0.9 % (0.0-1.8) 12/21/21 04:56 Lymph # (Auto) 1.4 K/mm3 (1.2-5.4) 12/21/21 04:56 [place] # (Auto) 0.7 K/mm3 (0.0-0.8) 12/21/21 04:56 Eos # (Auto) 1.0 K/mm3 (0.0-0.4) H 12/21/21 04:56 Baso # (Auto) 0.1 K/mm3 (0.0-0.1) 12/21/21 04:56 Seg Neutrophils % 70.0 % (40.0-70.0) 12/21/21 04:56 Seg Neutrophils # 7.4 K/mm3 (1.8-7.7) 12/21/21 04:56 PT 14.8 Sec. (12.2-14.9) 12/20/21 Unknown INR 1.04 (0.87-1.13) 12/20/21 Unknown APTT 38.6 Sec. (24.2-36.6) H 12/20/21 Unknown Thrombin Time 18.8 Sec. (15.1-19.6) 12/20/21 Unknown Sodium 139 mmol/L (137-145) 12/21/21 04:56 Potassium 4.1 mmol/L (3.6-5.0) 12/21/21 04:56 Chloride 102.0 mmol/L (98-107) 12/21/21 04:56 Carbon Dioxide 23 mmol/L (22-30) 12/21/21 04:56 Anion Gap 18 mmol/L 12/21/21 04:56 BUN 48 mg/dL (9-20) H 12/21/21 04:56 Creatinine 4.4 mg/dL (0.8-1.3) H 12/21/21 04:56 Estimated GFR 14 ml/min 12/21/21 04:56 BUN/Creatinine Ratio 11 % 12/21/21 04:56 Glucose 132 mg/dL (75-100) H 12/21/21 04:56 POC Glucose 150 mg/dL (70-105) H 12/21/21 05:21 Hemoglobin A1c 4.9 % (4-6) 12/21/21 04:56 Lactic Acid 1.80 mmol/L (0.7-2.0) 12/20/21 21:07 Calcium 7.7 mg/dL (8.4-10.2) L 12/21/21 04:56 Ammonia 25.0 umol/L (25-60) 12/20/21 23:52 Total Creatine Kinase 74 units/L (55-170) 12/20/21 Unknown CK-MB (CK-2) 5.3 ng/mL (0.0-4.0) H 12/20/21 Unknown CK-MB (CK-2) Rel Index 7.1 (0-4) H 12/20/21 Unknown Troponin T 0.095 ng/mL (0.00-0.029) H 12/20/21 Unknown Plasma/Serum Alcohol < 0.01 % (0-0.07) 12/20/21 Unknown Microbiology: Microbiology 12/21/21 10:50 Peripheral/Venous Blood Culture - Preliminary Culture in Progress 12/21/21 10:50 Peripheral/Venous Blood Culture - Preliminary Culture in Progress Rodríguez/IV: Voiding Method Condom Catheter Active Medications - Current Medications Current Medications: Generic Name Dose Route Start Last Admin Trade Name Freq PRN Reason Stop Dose Admin Acetaminophen 650 mg 12/20/21 21:51 Acetaminophen 325 Mg Tab PO Q4H PRN Pain MILD(1-3)/Fever >100.5/MELTON Albuterol 2.5 mg 12/20/21 21:51 Albuterol 2.5 Mg/3 Ml Nebu IH Q3HRT PRN Shortness Of Breath Albuterol/Ipratropium 1 ampul 12/21/21 02:00 12/21/21 08:32 Ipratropium/Albuterol Sulfate 3 Ml Ampul.Neb IH 1 ampul Q6HRT [facility] Administration Dextrose 50 ml 12/20/21 21:51 Dextrose 50% In Water (25gm) 50 Ml Syringe IV Q30MIN PRN Hypoglycemia Protocol Famotidine 20 mg 12/20/21 22:00 12/21/21 01:19 Famotidine 20 Mg/2 Ml Inj IV Not Given QAM [facility] Heparin Sodium (Porcine) 5,000 unit 12/20/21 22:00 12/21/21 01:19 Heparin 5,000 Unit/1 Ml Vial SUB-Q Not Given Q12HR [facility] Hydromorphone HCl 0.5 mg 12/20/21 21:51 Hydromorphone 1 Mg/1 Ml Inj IV Q3H PRN Pain , Severe (7-10) Sodium Chloride 1,000 mls @ 75 mls/hr 12/21/21 09:30 Nacl 0.9% 1000 Ml IV DIRECT [facility] Ceftriaxone Sodium 2 gm in 100 mls @ 200 mls/hr 12/21/21 14:00 Rocephin/Ns 2 Gm/100 Ml IV Q24H [facility] Protocol Morphine Sulfate 2 mg 12/20/21 21:51 Morphine 2 Mg/1 Ml Inj IV Q4H PRN Pain, Moderate (4-6) Ondansetron HCl 4 mg 12/20/21 21:51 Ondansetron 4 Mg/2 Ml Inj IV Q8H PRN Nausea And Vomiting Sodium Chloride 10 ml 12/20/21 22:00 12/21/21 01:20 Sodium Chloride 0.9% 10 Ml Flush Syringe IV 10 ml BID [facility] Administration Sodium Chloride 10 ml 12/20/21 21:51 Sodium Chloride 0.9% 10 Ml Flush Syringe IV PRN PRN LINE FLUSH
[2021-12-21] MEDS: cefTRIAXone/NS 2 GM/100 ML 2 GM/100 ML BAG IV SCH (14:12)
[2021-12-21] MEDS: MORPHINE 2 MG/1 ML INJ IV PRN ×2 (15:12→22:38)
[2021-12-22 08:12] LABS: Hematocrit 30.6 % (35.5-45.6); Hemoglobin 9.7 gm/dl (11.8-15.2); Mean Corpuscular HGB Conc 32 % (32-34); Mean Corpuscular Volume 82 fl (84-94); Platelet Count 420 K/mm3 (140-440); Red Blood Count 3.75 M/mm3 (3.65-5.03); Red Cell Distribution Width 17.4 % (13.2-15.2)
[2021-12-22 08:35] LABS: Albumin 3.4 g/dL (3.9-5)
--- NOTE | 2021-12-22 09:01 | Progress Note ---
Assessment and Plan Severe Renal Failure, questionable CKD S/P Hypoglycemia AMS Hypertension Diabetes Mellitus Anemia Plan: Cr is trending down, good UOP cont IVF Renal US -ve for obstruction Has history of DM And HTN so could have advanced CKD Avoid nephrotoxic agents Renally dose medications Strict I/O's daily Obtain daily weights May need hemodialysis initiation if renal function shows no improvement or worsen Will monitor renal function closely Subjective Date of service: 12/22/21 Principal diagnosis: TO Interval history: appears comfortable Objective - Vital Signs Vital signs: Vital Signs - 12hr 12/21/21 12/21/21 12/21/21 21:04 21:05 23:28 Temperature 98.4 F Pulse Rate 97 H Pulse Rate [ 100 H Bilateral] Respiratory 16 Rate Respiratory 18 Rate [Bilateral ] Blood Pressure 161/88 O2 Sat by Pulse 97 92 Oximetry 12/22/21 12/22/21 02:42 03:30 Temperature 98.4 F Pulse Rate 99 H Pulse Rate [ Bilateral] Respiratory 19 Rate Respiratory Rate [Bilateral ] Blood Pressure 134/86 O2 Sat by Pulse 100 93 Oximetry - Lab 12/22/21 07:51 12/22/21 07:51 Most recent lab results Calcium 8.0 mg/dL (8.4-10.2) L 12/22/21 07:51 Phosphorus 4.10 mg/dL (2.5-4.5) 12/22/21 07:51 Medications & Allergies - Medications Allergies/Adverse Reactions: Allergies Unable to Assess Allergy (Unverified 12/20/21 19:17) pt non verbal, AMS, unable to obtain history Active Medications: Generic Name Dose Route Start Last Admin Trade Name Freq PRN Reason Stop Dose Admin Acetaminophen 650 mg 12/20/21 21:51 Acetaminophen 325 Mg Tab PO Q4H PRN Pain MILD(1-3)/Fever >100.5/[place]EL[place] Albuterol 2.5 mg 12/20/21 21:51 Albuterol 2.5 Mg/3 Ml Nebu IH Q3HRT PRN Shortness Of Breath Albuterol/Ipratropium 1 ampul 12/22/21 08:00 Ipratropium/Albuterol Sulfate 3 Ml Ampul.Neb IH TIDRT [facility] Dextrose 50 ml 12/20/21 21:51 Dextrose 50% In Water (25gm) 50 Ml Syringe IV Q30MIN PRN Hypoglycemia Protocol Famotidine 20 mg 12/20/21 22:00 12/21/21 15:13 Famotidine 20 Mg/2 Ml Inj IV Not Given QAM [facility] Heparin Sodium (Porcine) 5,000 unit 12/20/21 22:00 12/21/21 22:34 Heparin 5,000 Unit/1 Ml Vial SUB-Q 5,000 unit Q12HR [facility] Administration Hydromorphone HCl 0.5 mg 12/20/21 21:51 Hydromorphone 1 Mg/1 Ml Inj IV Q3H PRN Pain , Severe (7-10) Sodium Chloride 1,000 mls @ 75 mls/hr 12/21/21 09:30 12/22/21 01:35 Nacl 0.9% 1000 Ml IV 75 mls/hr DIRECT [facility] Administration Ceftriaxone Sodium 2 gm in 100 mls @ 200 mls/hr 12/21/21 14:00 12/21/21 14:12 Rocephin/Ns 2 Gm/100 Ml IV 200 mls/hr Q24H [facility] Administration Protocol Morphine Sulfate 2 mg 12/20/21 21:51 12/21/21 22:38 Morphine 2 Mg/1 Ml Inj IV 2 mg Q4H PRN Administration Pain, Moderate (4-6) Ondansetron HCl 4 mg 12/20/21 21:51 Ondansetron 4 Mg/2 Ml Inj IV Q8H PRN Nausea And Vomiting Sodium Chloride 10 ml 12/20/21 22:00 12/21/21 22:34 Sodium Chloride 0.9% 10 Ml Flush Syringe IV 10 ml BID [facility] Administration Sodium Chloride 10 ml 12/20/21 21:51 Sodium Chloride 0.9% 10 Ml Flush Syringe IV PRN PRN LINE FLUSH
[2021-12-22] MEDS: IPRATROPIUM/ALBUTEROL SULFATE 3 ML AMPUL.NEB IH SCH ×3 (09:10→20:08)
[2021-12-22 09:34] LABS: Band Neutrophils # (Manual) 0.5 K/mm3; Promyelocytes # (Manual) 0.2 K/mm3; Total Cells Counted 100
[2021-12-22 09:35] LABS: Hypochromasia 1+; Platelet Estimate Consistent w Auto
--- NOTE | 2021-12-22 10:22 | Electrocardiograph Report ---
[facility] Test Date: 2021-12-20 Test Time: 19:51:43 Pat Name: CECIL MYERS Department: Room: A471 1 Gender: M Dining Room Busser: CHIDI : [id number] Requested By: JORDAN LANCASTER Order Number: [id number] Reading MD: Burton Mcintyre Measurements Intervals [place] Rate: 55 P: 51 AR: 151 QRS: 48 QRSD: 84 T: 210 QT: 563 QTc: 538 Interpretive Statements Sinus bradycardia Probable left atrial enlargement Abnrm T, consider ischemia, anterolateral lds Prolonged QT interval No previous ECG available for comparison Electronically Signed On 12-22-2021 10:21:54 EDT by Burton Mcintyre
[2021-12-22] MEDS: FAMOTIDINE 20 MG/2 ML INJ IV SCH (10:56)
[2021-12-22] MEDS: HEPARIN 5,000 UNIT/1 ML VIAL SUB-Q SCH ×2 (10:56→21:38)
[2021-12-22 12:53] LABS: Creatinine,Urine 79.2 mg/dL (0.1-20.0)
[2021-12-22 13:05] LABS: Protein/Creatinine Ratio,Urine 10.9
[2021-12-22 13:49] LABS: Bacteria,Urine 1+ /HPF (Negative); Mucus,Urine FEW /HPF
[2021-12-22 13:51] LABS: Bilirubin,Urine Negative (Negative); Blood,Urine Small (Negative); Color,Urine Straw (Yellow); PH,Urine 7.5 (5.0-7.0); WBC,Urine > 182.0 /HPF (0.0-6.0)
[2021-12-22 13:52] LABS: Protein,Urine 300 mg/dL mg/dL (Negative); Urobilinogen,Urine < 2.0 mg/dL (<2.0)
--- NOTE | 2021-12-22 14:04 | Progress Note ---
Assessment and Plan Assessment and plan: #Acute metabolic encephalopathyimproving #[id number] type 2 diabetes mellitus with hyperglycemia #Seizure disorder #Acute cystitis with purulence Multifactorial etiology including hypoglycemia (that originally required D50 x2), seizures, and acute cystitis -CT head noncontrast unremarkable. Pending MRI brain to rule out possible CVA in the setting of dysarthria. Blood culture NGTD x hours. Pending urinalysis and urine culture. Continue Rocephin 2 g every 24 hours for a 7-day course (completes on 12/27/2021). Continue IV fluid resuscitation and telemetry. Discontinued insulin regiment. Blood glucose goal [id number] while inpatient. Neurology consulted; appreciate recs. Unable to reach family to determine seizure medication. Continue to monitor #TO on CKD stage IVimproving -Creatinine 4.4--> 3.7 (baseline unknown) Nephrology consulted; appreciate recs. Renally dose medications, avoid nephrotoxic drugs, and continue renal diet. TO is possibly secondary to severe UTI with purulence #Microcytic anemia Hemoglobin 9.8 Pending iron and TIBC studies. Transfuse if hemoglobin <7 or patient becomes symptomatic. #Acute hypoxic respiratory failure Currently on 3 L nasal cannula (baseline unknown) Likely secondary to possible volume overload in the setting of significant TO Wean as tolerated. As encephalopathy improves, incentive spirometry can be ordered. #Hypocalcemia Calcium 7.7 Repleted. Continue to monitor. #Elevated troponin Troponin 0 0.[address] elevation or changes consistent with STEMI. Likely secondary to renal failure. #Hypertension - home medications: Currently unknown - current medications: Currently holding. Can start if systolic >160 or diastolic >90. - SBP goal <160 and DBP goal <90 while inpatient - continue to monitor #Mild protein caloric malnutrition Albumin 3.4 Starting dietary supplements #Social Currently unable to locate patient's next of kin/family. Case management is notifying nonemergent police department to perform a visit at the patient's home. #Advanced care planning -Disease education conducted, care plan discussed, diagnoses discussed, prognosis discussed, and patient acknowledges understanding with care plan -Time: +30 min Disposition Plan: Continue medical management Total Time Spent with Patient (Minutes): 45 minutes History Interval history: No acute events overnight. Hospitalist Physical - Constitutional Vitals: Temp Pulse Resp BP Pulse Ox 98.4 F 99 H 19 134/86 93 12/22/21 03:30 12/22/21 03:30 12/22/21 03:30 12/22/21 03:30 12/22/21 03:30 General appearance: Present: no acute distress, well-nourished - EENT Eyes: Present: PERRL, EOM intact ENT: hearing intact, clear oral mucosa - Neck Neck: Present: supple, normal ROM - Respiratory Respiratory effort: normal Respiratory: bilateral: CTA (On 3 L nasal cannula) - Cardiovascular Rhythm: regular Heart Sounds: Present: S1 & S2 - Extremities Extremities: no ischemia, pulses intact, pulses symmetrical, No edema, normal temperature, normal color, abnormal (Bilateral BKA's) Extremity abnormal: other (Purulent fluid draining from urethra) Peripheral Pulses: within normal limits - Abdominal General gastrointestinal: soft, non-tender, non-distended, normal bowel sounds - Integumentary Integumentary: Present: clear, warm, dry - Psychiatric Psychiatric: agitated, other (Currently combative) - Neurologic Neurologic: CNII-XII intact, moves all extremities, other (Encephalopathy is mild but has improved) - Allied Health Allied health notes reviewed: nursing HEART Score - HEART Score Troponin: Troponin T 0.095 ng/mL (0.00-0.029) H 12/20/21 Unknown Results - Labs CBC & Chem 7: 12/22/21 07:51 12/22/21 07:51 Labs: Laboratory Last Values WBC 15.1 K/mm3 (4.5-11.0) H 12/22/21 07:51 RBC 3.75 M/mm3 (3.65-5.03) 12/22/21 07:51 Hgb 9.7 gm/dl (11.8-15.2) L 12/22/21 07:51 Hct 30.6 % (35.5-45.6) L 12/22/21 07:51 MCV 82 fl (84-94) L 12/22/21 07:51 MCH 26 pg (28-32) L 12/22/21 07:51 MCHC 32 % (32-34) 12/22/21 07:51 RDW 17.4 % (13.2-15.2) H 12/22/21 07:51 Plt Count 420 K/mm3 (140-440) 12/22/21 07:51 Lymph % (Auto) 13.1 % (13.4-35.0) L 12/21/21 04:56 [place] % (Auto) 6.7 % (0.0-7.3) 12/21/21 04:56 Eos % (Auto) Gospel Singer 12/22/21 07:51 Baso % (Auto) 0.9 % (0.0-1.8) 12/21/21 04:56 Lymph # (Auto) 1.4 K/mm3 (1.2-5.4) 12/21/21 04:56 [place] # (Auto) 0.7 K/mm3 (0.0-0.8) 12/21/21 04:56 Eos # (Auto) 1.0 K/mm3 (0.0-0.4) H 12/21/21 04:56 Baso # (Auto) 0.1 K/mm3 (0.0-0.1) 12/21/21 04:56 Add Manual Diff Complete 12/22/21 07:51 Total Counted 100 12/22/21 07:51 Seg Neutrophils % 70.0 % (40.0-70.0) 12/21/21 04:56 Seg Neuts % (Manual) 71.0 % (40.0-70.0) H 12/22/21 07:51 Band Neutrophils % 3.0 % 12/22/21 07:51 Lymphocytes % (Manual) 2.0 % (13.4-35.0) L 12/22/21 07:51 Reactive Lymphs % (Man) 0 % 12/22/21 07:51 Monocytes % (Manual) 3.0 % (0.0-7.3) 12/22/21 07:51 Eosinophils % (Manual) 19.0 % (0.0-4.3) H 12/22/21 07:51 Basophils % (Manual) 1.0 % (0.0-1.8) 12/22/21 07:51 Metamyelocytes % 0 % 12/22/21 07:51 Myelocytes % 0 % 12/22/21 07:51 Promyelocytes % 1.0 % 12/22/21 07:51 Blast Cells % 0 % 12/22/21 07:51 Nucleated RBC % Not Reportable 12/22/21 07:51 Seg Neutrophils # 7.4 K/mm3 (1.8-7.7) 12/21/21 04:56 Seg Neutrophils # Man 10.7 K/mm3 (1.8-7.7) H 12/22/21 07:51 Band Neutrophils # 0.5 K/mm3 12/22/21 07:51 Lymphocytes # (Manual) 0.3 K/mm3 (1.2-5.4) L 12/22/21 07:51 Abs React Lymphs (Man) 0.0 K/mm3 12/22/21 07:51 Monocytes # (Manual) 0.5 K/mm3 (0.0-0.8) 12/22/21 07:51 Eosinophils # (Manual) 2.9 K/mm3 (0.0-0.4) H 12/22/21 07:51 Basophils # (Manual) 0.2 K/mm3 (0.0-0.1) H 12/22/21 07:51 Metamyelocytes # 0.0 K/mm3 12/22/21 07:51 Myelocytes # 0.0 K/mm3 12/22/21 07:51 Promyelocytes # 0.2 K/mm3 12/22/21 07:51 Blast Cells # 0.0 K/mm3 12/22/21 07:51 WBC Morphology Not Reportable 12/22/21 07:51 Hypersegmented Neuts Not Reportable 12/22/21 07:51 Hyposegmented Neuts Not Reportable 12/22/21 07:51 Hypogranular Neuts Not Reportable 12/22/21 07:51 Smudge Cells Not Reportable 12/22/21 07:51 Toxic Granulation Not Reportable 12/22/21 07:51 Toxic Vacuolation Not Reportable 12/22/21 07:51 Dohle Bodies Not Reportable 12/22/21 07:51 Pelger-Huet Anomaly Not Reportable 12/22/21 07:51 Humberto Rods Not Reportable 12/22/21 07:51 Platelet Estimate Consistent w auto 12/22/21 07:51 Clumped Platelets Not Reportable 12/22/21 07:51 Plt Clumps, EDTA Not Reportable 12/22/21 07:51 Large Platelets Not Reportable 12/22/21 07:51 Giant Platelets Not Reportable 12/22/21 07:51 Platelet Satelliting Not Reportable 12/22/21 07:51 Plt Morphology Comment Not Reportable 12/22/21 07:51 RBC Morphology Not Reportable 12/22/21 07:51 Dimorphic RBCs Not Reportable 12/22/21 07:51 Polychromasia Not Reportable 12/22/21 07:51 Hypochromasia 1+ 12/22/21 07:51 Poikilocytosis Not Reportable 12/22/21 07:51 Anisocytosis Not Reportable 12/22/21 07:51 Microcytosis Not Reportable 12/22/21 07:51 Macrocytosis Not Reportable 12/22/21 07:51 Spherocytes Not Reportable 12/22/21 07:51 Pappenheimer Bodies Not Reportable 12/22/21 07:51 Sickle Cells Not Reportable 12/22/21 07:51 Target Cells Not Reportable 12/22/21 07:51 Tear Drop Cells Not Reportable 12/22/21 07:51 Ovalocytes Not Reportable 12/22/21 07:51 Helmet Cells Not Reportable 12/22/21 07:51 Harrington-Carmichaels Bodies Not Reportable 12/22/21 07:51 [place] Rings Not Reportable 12/22/21 07:51 Akil Cells Not Reportable 12/22/21 07:51 Bite Cells Not Reportable 12/22/21 07:51 Crenated Cell Not Reportable 12/22/21 07:51 Elliptocytes Not Reportable 12/22/21 07:51 Acanthocytes (Spur) Not Reportable 12/22/21 07:51 Rouleaux Not Reportable 12/22/21 07:51 Hemoglobin C Crystals Not Reportable 12/22/21 07:51 Schistocytes Not Reportable 12/22/21 07:51 Malaria parasites Not Reportable 12/22/21 07:51 Carlos Bodies Not Reportable 12/22/21 07:51 Hem Pathologist Commnt No 12/22/21 07:51 PT 14.8 Sec. (12.2-14.9) 12/20/21 Unknown INR 1.04 (0.87-1.13) 12/20/21 Unknown APTT 38.6 Sec. (24.2-36.6) H 12/20/21 Unknown Thrombin Time 18.8 Sec. (15.1-19.6) 12/20/21 Unknown Sodium 139 mmol/L (137-145) 12/22/21 07:51 Potassium 4.2 mmol/L (3.6-5.0) 12/22/21 07:51 Chloride 103.4 mmol/L (98-107) 12/22/21 07:51 Carbon Dioxide 21 mmol/L (22-30) L 12/22/21 07:51 Anion Gap 19 mmol/L 12/22/21 07:51 BUN 40 mg/dL (9-20) H 12/22/21 07:51 Creatinine 3.7 mg/dL (0.8-1.3) H 12/22/21 07:51 Estimated GFR 17 ml/min 12/22/21 07:51 BUN/Creatinine Ratio 11 % 12/22/21 07:51 Glucose 131 mg/dL (75-100) H 12/22/21 07:51 POC Glucose 127 mg/dL (70-105) H 12/21/21 16:57 Hemoglobin A1c 4.9 % (4-6) 12/21/21 04:56 Lactic Acid 1.80 mmol/L (0.7-2.0) 12/20/21 21:07 Calcium 8.0 mg/dL (8.4-10.2) L 12/22/21 07:51 Phosphorus 4.10 mg/dL (2.5-4.5) 12/22/21 07:51 Total Bilirubin 0.30 mg/dL (0.1-1.2) 12/22/21 07:51 AST 10 units/L (5-40) 12/22/21 07:51 ALT 6 units/L (7-56) L 12/22/21 07:51 Alkaline Phosphatase 100 units/L (35-129) 12/22/21 07:51 Ammonia 25.0 umol/L (25-60) 12/20/21 23:52 Total Creatine Kinase 74 units/L (55-170) 12/20/21 Unknown CK-MB (CK-2) 5.3 ng/mL (0.0-4.0) H 12/20/21 Unknown CK-MB (CK-2) Rel Index 7.1 (0-4) H 12/20/21 Unknown Troponin T 0.095 ng/mL (0.00-0.029) H 12/20/21 Unknown Total Protein 6.6 g/dL (6.3-8.2) 12/22/21 07:51 Albumin 3.4 g/dL (3.9-5) L 12/22/21 07:51 Albumin/Globulin Ratio 1.1 % 12/22/21 07:51 PTH Intact 155.9 pg/mL (15-65) H 12/22/21 07:51 Urine Color Straw (Yellow) 12/22/21 Unknown Urine Turbidity Cloudy (Clear) 12/22/21 Unknown Urine pH 7.5 (5.0-7.0) H 12/22/21 Unknown Ur Specific [place] 1.015 (1.003-1.030) 12/22/21 Unknown Urine Protein 300 mg/dl mg/dL (Negative) 12/22/21 Unknown Urine Glucose (UA) 100 mg/dL (Negative) 12/22/21 Unknown Urine Ketones Negative mg/dL (Negative) 12/22/21 Unknown Urine Blood Small (Negative) A 12/22/21 Unknown Urine Nitrite Negative (Negative) 12/22/21 Unknown Ur Reducing Substances Not Reportable 12/22/21 Unknown Urine Bilirubin Negative (Negative) 12/22/21 Unknown Urine Ictotest Not Reportable 12/22/21 Unknown Urine Urobilinogen < 2.0 mg/dL (<2.0) 12/22/21 Unknown Ur Leukocyte Esterase Moderate (Negative) 12/22/21 Unknown Urine WBC (Auto) > 182.0 /HPF (0.0-6.0) H 12/22/21 Unknown Urine RBC (Auto) 30.0 /HPF (0.0-6.0) 12/22/21 Unknown U Epithel Cells (Auto) 3.0 /HPF (0-13.0) 12/22/21 Unknown Urine Bacteria (Auto) 1+ /HPF (Negative) 12/22/21 Unknown Urine Mucus Few /HPF 12/22/21 Unknown Urine Creatinine 79.2 mg/dL (0.1-20.0) H 12/21/21 Unknown Protein/Creatinin Ratio 10.90 12/21/21 Unknown Urine Sodium 95 mmol/L 12/21/21 Unknown Urine Total Protein 863 mg/dL (5-11.8) H 12/21/21 Unknown Plasma/Serum Alcohol < 0.01 % (0-0.07) 12/20/21 Unknown Microbiology: Microbiology 12/21/21 10:50 Peripheral/Venous Blood Culture - Preliminary NO GROWTH AFTER 24 HOURS 12/21/21 10:50 Peripheral/Venous Blood Culture - Preliminary NO GROWTH AFTER 24 HOURS Rodríguez/IV: Voiding Method Indwelling Catheter Active Medications - Current Medications Current Medications: Generic Name Dose Route Start Last Admin Trade Name Freq PRN Reason Stop Dose Admin Acetaminophen 650 mg 12/20/21 21:51 Acetaminophen 325 Mg Tab PO Q4H PRN Pain MILD(1-3)/Fever >100.5/MELTON Albuterol 2.5 mg 12/20/21 21:51 Albuterol 2.5 Mg/3 Ml Nebu IH Q3HRT PRN Shortness Of Breath Albuterol/Ipratropium 1 ampul 12/22/21 08:00 Ipratropium/Albuterol Sulfate 3 Ml Ampul.Neb IH TIDRT ROSENDO Dextrose 50 ml 12/20/21 21:51 Dextrose 50% In Water (25gm) 50 Ml Syringe IV Q30MIN PRN Hypoglycemia Protocol Famotidine 20 mg 12/20/21 22:00 12/22/21 10:56 Famotidine 20 Mg/2 Ml Inj IV 20 mg QAM ROSENDO Administration Heparin Sodium (Porcine) 5,000 unit 12/20/21 22:00 12/22/21 10:56 Heparin 5,000 Unit/1 Ml Vial SUB-Q 5,000 unit Q12HR ROSENDO Administration Hydromorphone HCl 0.5 mg 12/20/21 21:51 Hydromorphone 1 Mg/1 Ml Inj IV Q3H PRN Pain , Severe (7-10) Sodium Chloride 1,000 mls @ 75 mls/hr 12/21/21 09:30 12/22/21 01:35 Nacl 0.9% 1000 Ml IV 75 mls/hr DIRECT ROSENDO Administration Ceftriaxone Sodium 2 gm in 100 mls @ 200 mls/hr 12/21/21 14:00 12/21/21 14:12 Rocephin/Ns 2 Gm/100 Ml IV 200 mls/hr Q24H ROSENDO Administration Protocol Morphine Sulfate 2 mg 12/20/21 21:51 12/21/21 22:38 Morphine 2 Mg/1 Ml Inj IV 2 mg Q4H PRN Administration Pain, Moderate (4-6) Ondansetron HCl 4 mg 12/20/21 21:51 Ondansetron 4 Mg/2 Ml Inj IV Q8H PRN Nausea And Vomiting Sodium Chloride 10 ml 12/20/21 22:00 12/22/21 10:56 Sodium Chloride 0.9% 10 Ml Flush Syringe IV 10 ml BID ROSENDO Administration Sodium Chloride 10 ml 12/20/21 21:51 Sodium Chloride 0.9% 10 Ml Flush Syringe IV PRN PRN LINE FLUSH Nutrition/Malnutrition Assess - Dietary Evaluation Nutrition/Malnutrition Findings: Nutrition Notes Start: 12/21/21 16:14 Freq: Status: Active Protocol: Document 12/21/21 16:14 JAQUELIN (Rec: 12/21/21 16:24 JAQUELIN [id number]) Nutrition Notes Need for Assessment generated from: MD Order,Education Initial or Follow up Brief Note Current Diagnosis Acute Kidney Injury,CKD(stage I-IV),Diabetes,Hypertension Other Pertinent Diagnosis Metabolic Encephalopathy, Hypoglycemia, AMS, Seizure, Bilateral BKA. Current Diet Renal Diet (since L 12/21). Height 5 ft Weight 54.43 kg [place] Body Weight (kg) 48.18 BMI 23.4 Intake Prior to Admission Good Weight change and time frame Pt denies having loss body weight ACCESS LIAISON. Weight Status Appropriate Subjective/Other Information RD consult for nutrition education. No reports available on Pt's PO intake of meals at the time , will assess at F/U. Pt lives at Home with family. Pt still in critical condition , not a candidate for Nutrition Education at the time, will assess feasibility on F/U. Percent of energy/protein needs met: Prescribed Renal Diet provides for energy/protein needs (2, 072 Kcal/77 g) during LOS. Nutrition Intervention Follow-Up By: 12/28/21 Additional Comments Nutrition education will be provided on F/U, if feasible. Continue monitoring food tolerance, %PO intake of meals , and BM.
[2021-12-22] MEDS: cefTRIAXone/NS 2 GM/100 ML 2 GM/100 ML BAG IV SCH (14:11)
[2021-12-22] MEDS: MORPHINE 2 MG/1 ML INJ IV PRN (16:11)
[2021-12-23] MEDS: IPRATROPIUM/ALBUTEROL SULFATE 3 ML AMPUL.NEB IH SCH ×2 (08:28→20:17)
--- NOTE | 2021-12-23 09:24 | Progress Note ---
Assessment and Plan Severe Renal Failure, questionable CKD S/P Hypoglycemia AMS Hypertension Diabetes Mellitus Anemia Plan: BMP is pending good UOP cont IVF Renal US -ve for obstruction Has history of DM And HTN so could have advanced CKD Avoid nephrotoxic agents Renally dose medications Strict I/O's daily Obtain daily weights Will monitor renal function closely Subjective Date of service: 12/23/21 Principal diagnosis: TO Interval history: awake alert, no family at bedside Objective - Vital Signs Vital signs: Vital Signs - 12hr 12/22/21 12/22/21 12/23/21 22:00 23:22 01:00 Temperature 98.0 F Pulse Rate 116 H 119 H Pulse Rate [ Bilateral] Respiratory 16 Rate Respiratory Rate [Bilateral ] Blood Pressure 186/99 O2 Sat by Pulse 97 88 Oximetry 12/23/21 12/23/21 12/23/21 02:00 04:08 08:00 Temperature 97.7 F Pulse Rate 111 H Pulse Rate [ 116 H Bilateral] Respiratory 16 Rate Respiratory 16 Rate [Bilateral ] Blood Pressure 175/98 O2 Sat by Pulse 100 84 Oximetry 12/23/21 08:46 Temperature Pulse Rate Pulse Rate [ Bilateral] Respiratory Rate Respiratory Rate [Bilateral ] Blood Pressure O2 Sat by Pulse 96 Oximetry - Lab 12/22/21 07:51 12/22/21 07:51 Most recent lab results Calcium 8.0 mg/dL (8.4-10.2) L 12/22/21 07:51 Phosphorus 4.10 mg/dL (2.5-4.5) 12/22/21 07:51 Urine Creatinine 79.2 mg/dL (0.1-20.0) H 12/21/21 Unknown Urine Sodium 95 mmol/L 12/21/21 Unknown Urine Total Protein 863 mg/dL (5-11.8) H 12/21/21 Unknown Medications & Allergies - Medications Allergies/Adverse Reactions: Allergies Unable to Assess Allergy (Unverified 12/20/21 19:17) pt non verbal, AMS, unable to obtain history Home Medications: Home Medications Medication Instructions Recorded Confirmed Last Taken Type Aspirin 81 mg PO DAILY 12/23/21 12/23/21 12/13/21 History 12/13/21 Atorvastatin 40 mg PO HS 12/23/21 12/23/21 Unknown History Cholecalciferol (Vitamin D3) 100 mcg PO DAILY 12/23/21 12/23/21 12/13/21 History [Vitamin D3] Furosemide [Lasix TAB] 80 mg PO DAILY 12/23/21 12/23/21 12/12/21 History Isosorbide Dinitrate 20 mg PO TID 12/23/21 12/23/21 12/12/21 History QUEtiapine [SEROquel] 25 mg PO HS 12/23/21 12/23/21 12/12/21 History Sevelamer Carbonate 0.8 gram TID 12/23/21 12/23/21 12/12/21 History Sodium Bicarbonate 650 mg PO BID 12/23/21 12/23/21 12/12/21 History Tamsulosin [Flomax] 0.4 mg PO HS 12/23/21 12/23/21 12/12/21 History carvediloL [Coreg] 25 mg PO BID 12/23/21 12/23/21 12/12/21 History glipiZIDE 5 mg PO BID 12/23/21 12/23/21 Unknown History hydrALAZINE 50 mg PO TID 12/23/21 12/23/21 12/12/21 History metFORMIN 1,000 mg PO BID 12/23/21 12/23/21 Unknown History Active Medications: Generic Name Dose Route Start Last Admin Trade Name Freq PRN Reason Stop Dose Admin Acetaminophen 650 mg 12/20/21 21:51 Acetaminophen 325 Mg Tab PO Q4H PRN Pain MILD(1-3)/Fever >100.5/MELTON Albuterol 2.5 mg 12/20/21 21:51 Albuterol 2.5 Mg/3 Ml Nebu IH Q3HRT PRN Shortness Of Breath Albuterol/Ipratropium 1 ampul 12/22/21 08:00 12/23/21 08:28 Ipratropium/Albuterol Sulfate 3 Ml Ampul.Neb IH 1 ampul TIDRT ROSENDO Administration Carvedilol 12.5 mg 12/23/21 10:00 Carvedilol 12.5 Mg Tab PO BID ROSENDO Dextrose 50 ml 12/20/21 21:51 Dextrose 50% In Water (25gm) 50 Ml Syringe IV Q30MIN PRN Hypoglycemia Protocol Famotidine 20 mg 12/20/21 22:00 12/22/21 10:56 Famotidine 20 Mg/2 Ml Inj IV 20 mg QAM ROSENDO Administration Heparin Sodium (Porcine) 5,000 unit 12/20/21 22:00 12/22/21 21:38 Heparin 5,000 Unit/1 Ml Vial SUB-Q 5,000 unit Q12HR ROSENDO Administration Hydromorphone HCl 0.5 mg 12/20/21 21:51 Hydromorphone 1 Mg/1 Ml Inj IV Q3H PRN Pain , Severe (7-10) Sodium Chloride 1,000 mls @ 75 mls/hr 12/21/21 09:30 12/22/21 01:35 Nacl 0.9% 1000 Ml IV 75 mls/hr DIRECT ROSENDO Administration Ceftriaxone Sodium 2 gm in 100 mls @ 200 mls/hr 12/21/21 14:00 12/22/21 14:11 Rocephin/Ns 2 Gm/100 Ml IV 200 mls/hr Q24H ROSENDO Administration Protocol Morphine Sulfate 2 mg 12/20/21 21:51 12/22/21 16:11 Morphine 2 Mg/1 Ml Inj IV 2 mg Q4H PRN Administration Pain, Moderate (4-6) Nifedipine 60 mg 12/23/21 10:00 Nifedipine Xl 60 Mg Tab PO QDAY [facility] Ondansetron HCl 4 mg 12/20/21 21:51 Ondansetron 4 Mg/2 Ml Inj IV Q8H PRN Nausea And Vomiting Sodium Chloride 10 ml 12/20/21 22:00 12/22/21 21:43 Sodium Chloride 0.9% 10 Ml Flush Syringe IV 10 ml BID ROSENDO Administration Sodium Chloride 10 ml 12/20/21 21:51 Sodium Chloride 0.9% 10 Ml Flush Syringe IV PRN PRN LINE FLUSH
[2021-12-23] MEDS: FAMOTIDINE 20 MG/2 ML INJ IV SCH (09:56)
[2021-12-23] MEDS: HEPARIN 5,000 UNIT/1 ML VIAL SUB-Q SCH ×2 (09:56→22:08)
[2021-12-23] MEDS: NIFEdipine XL 60 MG TAB PO SCH (09:57)
[2021-12-23] MEDS: carvediloL 12.5 MG TAB PO SCH ×4 (09:57→22:23)
[2021-12-23] MEDS ORDERED: NIFEdipine XL 30 MG TAB PO SCH ×2 (10:00)
[2021-12-23] MEDS: MORPHINE 2 MG/1 ML INJ IV PRN (10:25)
[2021-12-23] MEDS: cefTRIAXone/NS 2 GM/100 ML 2 GM/100 ML BAG IV SCH (14:25)
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
[2021-12-24] MEDS: IPRATROPIUM/ALBUTEROL SULFATE 3 ML AMPUL.NEB IH SCH ×4 (07:57→21:05)
[2021-12-24] MEDS: NIFEdipine XL 60 MG TAB PO SCH (09:16)
[2021-12-24] MEDS: carvediloL 12.5 MG TAB PO SCH ×2 (09:16→23:32)
[2021-12-24] MEDS: FAMOTIDINE 20 MG/2 ML INJ IV SCH (09:16)
[2021-12-24] MEDS: HEPARIN 5,000 UNIT/1 ML VIAL SUB-Q SCH ×2 (09:18→23:32)
[2021-12-24 11:11] LABS: Hematocrit 27.6 % (35.5-45.6); Hemoglobin 8.6 gm/dl (11.8-15.2); Mean Corpuscular HGB Conc 31 % (32-34); Mean Corpuscular Volume 82 fl (84-94); Platelet Count 313 K/mm3 (140-440); Red Blood Count 3.36 M/mm3 (3.65-5.03); Red Cell Distribution Width 17.1 % (13.2-15.2)
[2021-12-24 11:18] LABS: Albumin 3.4 g/dL (3.9-5); Calcium 8.4 mg/dL (8.4-10.2)
--- NOTE | 2021-12-24 11:39 | Progress Note ---
Assessment and Plan Assessment and Plan Acute Renal Failure on top of CKD Metabolic acidosis S/P Hypoglycemia AMS Hypertension Diabetes Mellitus Anemia Plan: Cr worse, monitor Start bicarb tabs for acidosis good UOP On IVFs, check BNP,CXR in am for volume status Renal US -ve for obstruction, shows CKD signs Has history of DM And HTN so could have advanced CKD, also has proteinuria. check secondary nephrotic w/u with UPEP, SPEP, urine IFx, LULY, Anti-DsDNA, C3/C4, Hep panel, HIV Avoid nephrotoxic agents Renally dose medications Strict I/O's daily Obtain daily weights Will monitor renal function closely Subjective Date of service: 12/24/21 Principal diagnosis: TO Interval history: Making urine. NAD. Objective - Vital Signs Vital signs: Vital Signs - 12hr 12/24/21 12/24/21 12/24/21 01:00 02:00 04:12 Temperature 97.6 F Pulse Rate 83 92 H Pulse Rate [ Bilateral] Respiratory 21 18 Rate Respiratory Rate [Bilateral ] Blood Pressure 139/65 O2 Sat by Pulse 93 97 Oximetry 12/24/21 12/24/21 12/24/21 07:28 07:57 08:40 Temperature 98.4 F Pulse Rate 95 H Pulse Rate [ 93 H Bilateral] Respiratory 20 Rate Respiratory 18 Rate [Bilateral ] Blood Pressure 143/64 O2 Sat by Pulse 94 98 93 Oximetry - Lab 12/24/21 09:22 12/24/21 09:22 Most recent lab results Calcium 8.4 mg/dL (8.4-10.2) 12/24/21 09:22 Phosphorus 4.10 mg/dL (2.5-4.5) 12/22/21 07:51 Urine Creatinine 79.2 mg/dL (0.1-20.0) H 12/21/21 Unknown Urine Sodium 95 mmol/L 12/21/21 Unknown Urine Total Protein 863 mg/dL (5-11.8) H 12/21/21 Unknown Medications & Allergies - Medications Allergies/Adverse Reactions: Allergies Unable to Assess Allergy (Unverified 12/20/21 19:17) pt non verbal, AMS, unable to obtain history Home Medications: Home Medications Medication Instructions Recorded Confirmed Last Taken Type Aspirin 81 mg PO DAILY 12/23/21 12/23/21 12/13/21 History 12/13/21 Atorvastatin 40 mg PO HS 12/23/21 12/23/21 Unknown History Cholecalciferol (Vitamin D3) 100 mcg PO DAILY 12/23/21 12/23/21 12/13/21 History [Vitamin D3] Furosemide [Lasix TAB] 80 mg PO DAILY 12/23/21 12/23/21 12/12/21 History Isosorbide Dinitrate 20 mg PO TID 12/23/21 12/23/21 12/12/21 History QUEtiapine [SEROquel] 25 mg PO HS 12/23/21 12/23/21 12/12/21 History Sevelamer Carbonate 0.8 gram TID 12/23/21 12/23/21 12/12/21 History Sodium Bicarbonate 650 mg PO BID 12/23/21 12/23/21 12/12/21 History Tamsulosin [Flomax] 0.4 mg PO HS 12/23/21 12/23/21 12/12/21 History carvediloL [Coreg] 25 mg PO BID 12/23/21 12/23/21 12/12/21 History glipiZIDE 5 mg PO BID 12/23/21 12/23/21 Unknown History hydrALAZINE 50 mg PO TID 12/23/21 12/23/21 12/12/21 History metFORMIN 1,000 mg PO BID 12/23/21 12/23/21 Unknown History Active Medications: Generic Name Dose Route Start Last Admin Trade Name Freq PRN Reason Stop Dose Admin Acetaminophen 650 mg 12/20/21 21:51 Acetaminophen 325 Mg Tab PO Q4H PRN Pain MILD(1-3)/Fever >100.5/MELTON Albuterol 2.5 mg 12/20/21 21:51 Albuterol 2.5 Mg/3 Ml Nebu IH Q3HRT PRN Shortness Of Breath Albuterol/Ipratropium 1 ampul 12/22/21 08:00 12/24/21 11:19 Ipratropium/Albuterol Sulfate 3 Ml Ampul.Neb IH Not Given TIDRT ROSENDO Carvedilol 12.5 mg 12/23/21 10:00 12/24/21 09:16 Carvedilol 12.5 Mg Tab PO 12.5 mg BID ROSENDO Administration Dextrose 50 ml 12/20/21 21:51 Dextrose 50% In Water (25gm) 50 Ml Syringe IV Q30MIN PRN Hypoglycemia Protocol Famotidine 20 mg 12/20/21 22:00 12/24/21 09:16 Famotidine 20 Mg/2 Ml Inj IV 20 mg QAM ROSENDO Administration Heparin Sodium (Porcine) 5,000 unit 12/20/21 22:00 12/24/21 09:18 Heparin 5,000 Unit/1 Ml Vial SUB-Q 5,000 unit Q12HR ROSENDO Administration Hydromorphone HCl 0.5 mg 12/20/21 21:51 Hydromorphone 1 Mg/1 Ml Inj IV Q3H PRN Pain , Severe (7-10) Sodium Chloride 1,000 mls @ 75 mls/hr 12/21/21 09:30 12/22/21 01:35 Nacl 0.9% 1000 Ml IV 75 mls/hr DIRECT ROSENDO Administration Ceftriaxone Sodium 2 gm in 100 mls @ 200 mls/hr 12/21/21 14:00 12/23/21 14:25 Rocephin/Ns 2 Gm/100 Ml IV 200 mls/hr Q24H ROSENDO Administration Protocol Morphine Sulfate 2 mg 12/20/21 21:51 12/23/21 10:25 Morphine 2 Mg/1 Ml Inj IV 2 mg Q4H PRN Administration Pain, Moderate (4-6) Nifedipine 60 mg 12/23/21 10:00 12/24/21 09:16 Nifedipine Xl 60 Mg Tab PO 60 mg QDAY ROSENDO Administration Ondansetron HCl 4 mg 12/20/21 21:51 Ondansetron 4 Mg/2 Ml Inj IV Q8H PRN Nausea And Vomiting Sodium Bicarbonate 650 mg 12/24/21 14:00 Sodium Bicarbonate 650 Mg Tab PO TID ROSENDO Sodium Chloride 10 ml 12/20/21 22:00 12/24/21 09:18 Sodium Chloride 0.9% 10 Ml Flush Syringe IV 10 ml BID ROSENDO Administration Sodium Chloride 10 ml 12/20/21 21:51 Sodium Chloride 0.9% 10 Ml Flush Syringe IV PRN PRN LINE FLUSH
[2021-12-24] MEDS ORDERED: LACTATED RINGERS 1,000 ML IV SCH (12:00)
[2021-12-24 12:36] LABS: Total Cells Counted 100
[2021-12-24 12:37] LABS: Schistocytes Few
[2021-12-24 12:41] LABS: Burr Cells Few
[2021-12-24 12:43] LABS: Spherocytes Few
[2021-12-24 12:44] LABS: Large Platelets Few
[2021-12-24 12:45] LABS: Platelet Estimate Consistent w Auto
[2021-12-24] MEDS: cefTRIAXone/NS 2 GM/100 ML 2 GM/100 ML BAG IV SCH (15:06)
[2021-12-24] MEDS: SODIUM BICARBONATE 650 MG TAB PO SCH ×2 (15:06→23:32)
--- NOTE | 2021-12-25 09:05 | XRay Report ---
. CHEST 1 VIEW INDICATION: congestion. COMPARISON: None FINDINGS: SUPPORT DEVICES: None. HEART: Within normal limits. LUNGS/PLEURA: Mild patchy multifocal airspace disease throughout the lungs. No appreciable effusion. ADDITIONAL FINDINGS: None. IMPRESSION: 1. Lung findings as above. Signer Name: Jerardo Schuster MD Signed: 12/25/2021 9:01 AM Workstation Name: [id number]
[2021-12-25] MEDS: HEPARIN 5,000 UNIT/1 ML VIAL SUB-Q SCH ×2 (09:23→21:34)
[2021-12-25] MEDS: NIFEdipine XL 60 MG TAB PO SCH (09:24)
[2021-12-25] MEDS: FAMOTIDINE 20 MG/2 ML INJ IV SCH (09:24)
[2021-12-25] MEDS: SODIUM BICARBONATE 650 MG TAB PO SCH ×3 (09:24→19:37)
[2021-12-25] MEDS: carvediloL 12.5 MG TAB PO SCH ×2 (09:24→21:21)
[2021-12-25] MEDS: IPRATROPIUM/ALBUTEROL SULFATE 3 ML AMPUL.NEB IH SCH ×3 (09:25→20:15)
--- NOTE | 2021-12-25 11:34 | Progress Note ---
Assessment and Plan Assessment and Plan Acute Renal Failure on top of CKD Metabolic acidosis S/P Hypoglycemia AMS Hypertension Diabetes Mellitus Anemia Plan: Monitor Cr. Started bicarb tabs for acidosis good UOP On IVFs, dec NS to 50 cc/hr, CXR slightly congested. Renal US -ve for obstruction, shows CKD signs Has history of DM And HTN so could have advanced CKD, also has proteinuria. ordered secondary nephrotic w/u with UPEP, SPEP, urine IFx, LULY, Anti-DsDNA, C3/C4, Hep panel, HIV Avoid nephrotoxic agents Renally dose medications Strict I/O's daily Obtain daily weights Will monitor renal function closely Subjective Date of service: 12/25/21 Principal diagnosis: TO Interval history: Making urine. NAD. Objective - Exam Narrative Exam: Physical exam: General appearance: Present: no acute distress, well-nourished - EENT Eyes: Present: PERRL, EOM intact ENT: hearing intact, clear oral mucosa - Neck Neck: Present: supple, normal ROM - Respiratory Respiratory effort: normal Respiratory: bilateral: diminished (On 2 L nasal cannula) - Cardiovascular Rhythm: regular Heart Sounds: Present: S1 & S2 - Extremities Extremities: no ischemia, pulses intact, pulses symmetrical, No edema, normal temperature, normal color, Full ROM, abnormal (Bilateral BKA's) Peripheral Pulses: within normal limits - Abdominal General gastrointestinal: soft, non-tender, non-distended, normal bowel sounds - Integumentary Integumentary: Present: clear, warm, dry - Psychiatric Psychiatric: agitated, other (More conversant and more cooperative) - Neurologic Neurologic: CNII-XII intact - Allied Health Allied health notes reviewed: nursing - Vital Signs Vital signs: Vital Signs - 12hr 12/24/21 12/25/21 12/25/21 23:50 04:15 08:00 Temperature 98.0 F 98.4 F Pulse Rate Respiratory 16 18 Rate Blood Pressure 120/65 159/72 O2 Sat by Pulse 97 Oximetry 12/25/21 08:02 Temperature 98.3 F Pulse Rate 91 H Respiratory Rate Blood Pressure 138/77 O2 Sat by Pulse 92 Oximetry - Lab 12/24/21 09:22 12/24/21 09:22 Most recent lab results Calcium 8.4 mg/dL (8.4-10.2) 12/24/21 09:22 Phosphorus 4.10 mg/dL (2.5-4.5) 12/22/21 07:51 Urine Creatinine 79.2 mg/dL (0.1-20.0) H 12/21/21 Unknown Urine Sodium 95 mmol/L 12/21/21 Unknown Urine Total Protein 863 mg/dL (5-11.8) H 12/21/21 Unknown Medications & Allergies - Medications Allergies/Adverse Reactions: Allergies Unable to Assess Allergy (Unverified 12/20/21 19:17) pt non verbal, AMS, unable to obtain history Home Medications: Home Medications Medication Instructions Recorded Confirmed Last Taken Type Aspirin 81 mg PO DAILY 12/23/21 12/23/21 12/13/21 History 12/13/21 Atorvastatin 40 mg PO HS 12/23/21 12/23/21 Unknown History Cholecalciferol (Vitamin D3) 100 mcg PO DAILY 12/23/21 12/23/21 12/13/21 History [Vitamin D3] Furosemide [Lasix TAB] 80 mg PO DAILY 12/23/21 12/23/21 12/12/21 History Isosorbide Dinitrate 20 mg PO TID 12/23/21 12/23/21 12/12/21 History QUEtiapine [SEROquel] 25 mg PO HS 12/23/21 12/23/21 12/12/21 History Sevelamer Carbonate 0.8 gram TID 12/23/21 12/23/21 12/12/21 History Sodium Bicarbonate 650 mg PO BID 12/23/21 12/23/21 12/12/21 History Tamsulosin [Flomax] 0.4 mg PO HS 12/23/21 12/23/21 12/12/21 History carvediloL [Coreg] 25 mg PO BID 12/23/21 12/23/21 12/12/21 History glipiZIDE 5 mg PO BID 12/23/21 12/23/21 Unknown History hydrALAZINE 50 mg PO TID 12/23/21 12/23/21 12/12/21 History metFORMIN 1,000 mg PO BID 12/23/21 12/23/21 Unknown History Active Medications: Generic Name Dose Route Start Last Admin Trade Name Freq PRN Reason Stop Dose Admin Acetaminophen 650 mg 12/20/21 21:51 Acetaminophen 325 Mg Tab PO Q4H PRN Pain MILD(1-3)/Fever >100.5/MELTON Albuterol 2.5 mg 12/20/21 21:51 Albuterol 2.5 Mg/3 Ml Nebu IH Q3HRT PRN Shortness Of Breath Albuterol/Ipratropium 1 ampul 12/22/21 08:00 12/24/21 21:05 Ipratropium/Albuterol Sulfate 3 Ml Ampul.Neb IH 1 ampul TIDRT ROSENDO Administration Carvedilol 12.5 mg 12/23/21 10:00 12/25/21 09:24 Carvedilol 12.5 Mg Tab PO 12.5 mg BID ROSENDO Administration Dextrose 50 ml 12/20/21 21:51 Dextrose 50% In Water (25gm) 50 Ml Syringe IV Q30MIN PRN Hypoglycemia Protocol Famotidine 20 mg 12/20/21 22:00 12/25/21 09:24 Famotidine 20 Mg/2 Ml Inj IV 20 mg QAM ROSENDO Administration Heparin Sodium (Porcine) 5,000 unit 12/20/21 22:00 12/25/21 09:23 Heparin 5,000 Unit/1 Ml Vial SUB-Q 5,000 unit Q12HR ROSENDO Administration Hydromorphone HCl 0.5 mg 12/20/21 21:51 Hydromorphone 1 Mg/1 Ml Inj IV Q3H PRN Pain , Severe (7-10) Sodium Chloride 1,000 mls @ 100 mls/hr 12/21/21 09:30 12/22/21 01:35 Nacl 0.9% 1000 Ml IV 75 mls/hr DIRECT ROSENDO Administration Ceftriaxone Sodium 2 gm in 100 mls @ 200 mls/hr 12/21/21 14:00 12/24/21 15:06 Rocephin/Ns 2 Gm/100 Ml IV 200 mls/hr Q24H ROSENDO Administration Protocol Morphine Sulfate 2 mg 12/20/21 21:51 12/23/21 10:25 Morphine 2 Mg/1 Ml Inj IV 2 mg Q4H PRN Administration Pain, Moderate (4-6) Nifedipine 60 mg 12/23/21 10:00 12/25/21 09:24 Nifedipine Xl 60 Mg Tab PO 60 mg QDAY ROSENDO Administration Ondansetron HCl 4 mg 12/20/21 21:51 Ondansetron 4 Mg/2 Ml Inj IV Q8H PRN Nausea And Vomiting Sodium Bicarbonate 650 mg 12/24/21 14:00 12/25/21 09:24 Sodium Bicarbonate 650 Mg Tab PO 650 mg TID ROSENDO Administration Sodium Chloride 10 ml 12/20/21 22:00 12/25/21 09:24 Sodium Chloride 0.9% 10 Ml Flush Syringe IV 10 ml BID ROSENDO Administration Sodium Chloride 10 ml 12/20/21 21:51 Sodium Chloride 0.9% 10 Ml Flush Syringe IV PRN PRN LINE FLUSH
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
[2021-12-25] MEDS: cefTRIAXone/NS 2 GM/100 ML 2 GM/100 ML BAG IV SCH (15:46)
[2021-12-25] MEDS: MORPHINE 2 MG/1 ML INJ IV PRN (17:44)
[2021-12-25] MEDS: SODIUM CHLORIDE 0.9% 1000 ML 1,000 ML IV SCH (17:44)
[2021-12-25 18:10] LABS: Hemoglobin 8.6 gm/dl (11.8-15.2); Mean Corpuscular HGB Conc 33 % (32-34); Mean Corpuscular Volume 82 fl (84-94); Platelet Count 273 K/mm3 (140-440); Red Blood Count 3.16 M/mm3 (3.65-5.03); Red Cell Distribution Width 16.9 % (13.2-15.2)
[2021-12-25 18:31] LABS: Calcium 8.4 mg/dL (8.4-10.2)
[2021-12-25 18:33] LABS: Albumin 3.6 g/dL (3.9-5); Calcium 8.4 mg/dL (8.4-10.2)
[2021-12-25 18:50] LABS: Basophils % (Manual) 0 % (0.0-1.8); Total Cells Counted 100
[2021-12-25 18:51] LABS: Anisocytosis 1+; Poikilocytosis 2+
[2021-12-25 18:52] LABS: Burr Cells 2+; Ovalocytes Few; Schistocytes Few; Toxic Granulation 1+
[2021-12-25 18:53] LABS: Platelet Estimate Consistent w Auto
[2021-12-25 19:22] LABS: Hepatitis B Surface Antigen Non-Reactive (Negative); Hepatitis C Virus Antibody Non-Reactive (NonReactive)
[2021-12-26] MEDS: IPRATROPIUM/ALBUTEROL SULFATE 3 ML AMPUL.NEB IH SCH ×3 (08:06→20:55)
[2021-12-26] MEDS: SODIUM BICARBONATE 650 MG TAB PO SCH ×3 (08:27→22:32)
[2021-12-26 09:33] LABS: Hematocrit 25.6 % (35.5-45.6); Hemoglobin 8.4 gm/dl (11.8-15.2); Mean Corpuscular HGB Conc 33 % (32-34); Mean Corpuscular Volume 81 fl (84-94); Platelet Count 289 K/mm3 (140-440); Red Blood Count 3.17 M/mm3 (3.65-5.03); Red Cell Distribution Width 16.9 % (13.2-15.2)
[2021-12-26 09:47] LABS: Albumin 3.2 g/dL (3.9-5); Calcium 8.4 mg/dL (8.4-10.2)
[2021-12-26 10:52] LABS: Total Cells Counted 100
[2021-12-26 10:53] LABS: Burr Cells 1+; Ovalocytes 1+; Platelet Estimate Consistent w Auto; Poikilocytosis 2+; Spherocytes 1+; Toxic Granulation 1+
[2021-12-26 10:54] LABS: Anisocytosis 1+; Schistocytes Few
[2021-12-26] MEDS: MORPHINE 2 MG/1 ML INJ IV PRN (11:22)
[2021-12-26] MEDS: NIFEdipine XL 60 MG TAB PO SCH (11:27)
[2021-12-26] MEDS: carvediloL 12.5 MG TAB PO SCH ×2 (11:27→22:25)
[2021-12-26] MEDS: FAMOTIDINE 20 MG TAB PO SCH (11:28)
[2021-12-26] MEDS: HEPARIN 5,000 UNIT/1 ML VIAL SUB-Q SCH ×2 (11:28→22:26)
[2021-12-26] MEDS: SODIUM CHLORIDE 0.9% 1000 ML 1,000 ML IV SCH (11:28)
--- NOTE | 2021-12-26 12:04 | Progress Note ---
Assessment and Plan Acute Renal Failure on top of CKD Metabolic acidosis S/P Hypoglycemia AMS Hypertension Diabetes Mellitus Anemia Plan: stable kidney function contbicarb tabs for acidosis good UOP Renal US -ve for obstruction, shows CKD signs Has history of DM And HTN so could have advanced CKD, also has proteinuria. ordered secondary nephrotic w/u with UPEP, SPEP, urine IFx, LULY, Anti-DsDNA, C3/C4, Hep panel, HIV Avoid nephrotoxic agents Renally dose medications Strict I/O's daily Obtain daily weights can be discharged and followed as an outpatient from renal standpoint Subjective Date of service: 12/26/21 Principal diagnosis: TO Interval history: denies acute issues Objective - Vital Signs Vital signs: Vital Signs - 12hr 12/26/21 12/26/21 12/26/21 04:05 07:49 08:07 Temperature 98.1 F 98.2 F Pulse Rate 76 82 Respiratory 16 18 Rate Blood Pressure 126/68 132/64 O2 Sat by Pulse 94 96 93 Oximetry - General Appearance General appearance: well-developed, well-nourished EENT: ATNC, PERRL, mucous membranes moist Neck: no JVD Respiratory: Present: Clear to Ascultation Cardiology: regular Gastrointestinal: normoactive bowel sounds Integumentary: no rash, warm and dry Neurologic: no focal deficit, no asterixis Psychiatric: mood/affect appropriate - Lab 12/26/21 09:05 12/26/21 09:05 Most recent lab results Calcium 8.4 mg/dL (8.4-10.2) 12/26/21 09:05 Phosphorus 4.10 mg/dL (2.5-4.5) 12/22/21 07:51 Urine Creatinine 112.0 mg/dL (0.1-20.0) H 12/25/21 Unknown Urine Sodium 95 mmol/L 12/21/21 Unknown Urine Total Protein 675 mg/dL (5-11.8) H 12/25/21 Unknown Medications & Allergies - Medications Allergies/Adverse Reactions: Allergies Unable to Assess Allergy (Unverified 12/20/21 19:17) pt non verbal, AMS, unable to obtain history Home Medications: Home Medications Medication Instructions Recorded Confirmed Last Taken Type Aspirin 81 mg PO DAILY 12/23/21 12/23/21 12/13/21 History 12/13/21 Atorvastatin 40 mg PO HS 12/23/21 12/23/21 Unknown History Cholecalciferol (Vitamin D3) 100 mcg PO DAILY 12/23/21 12/23/21 12/13/21 History [Vitamin D3] Furosemide [Lasix TAB] 80 mg PO DAILY 12/23/21 12/23/21 12/12/21 History Isosorbide Dinitrate 20 mg PO TID 12/23/21 12/23/21 12/12/21 History QUEtiapine [SEROquel] 25 mg PO HS 12/23/21 12/23/21 12/12/21 History Sevelamer Carbonate 0.8 gram TID 12/23/21 12/23/21 12/12/21 History Sodium Bicarbonate 650 mg PO BID 12/23/21 12/23/21 12/12/21 History Tamsulosin [Flomax] 0.4 mg PO HS 12/23/21 12/23/21 12/12/21 History carvediloL [Coreg] 25 mg PO BID 12/23/21 12/23/21 12/12/21 History glipiZIDE 5 mg PO BID 12/23/21 12/23/21 Unknown History hydrALAZINE 50 mg PO TID 12/23/21 12/23/21 12/12/21 History metFORMIN 1,000 mg PO BID 12/23/21 12/23/21 Unknown History Active Medications: Generic Name Dose Route Start Last Admin Trade Name Freq PRN Reason Stop Dose Admin Acetaminophen 650 mg 12/20/21 21:51 Acetaminophen 325 Mg Tab PO Q4H PRN Pain MILD(1-3)/Fever >100.5/MELTON Albuterol 2.5 mg 12/20/21 21:51 Albuterol 2.5 Mg/3 Ml Nebu IH Q3HRT PRN Shortness Of Breath Albuterol/Ipratropium 1 ampul 12/22/21 08:00 12/26/21 08:06 Ipratropium/Albuterol Sulfate 3 Ml Ampul.Neb IH Not Given TIDRT ROSENDO Carvedilol 12.5 mg 12/23/21 10:00 12/26/21 11:27 Carvedilol 12.5 Mg Tab PO 12.5 mg BID ROSENDO Administration Dextrose 50 ml 12/20/21 21:51 Dextrose 50% In Water (25gm) 50 Ml Syringe IV Q30MIN PRN Hypoglycemia Protocol Famotidine 20 mg 12/26/21 10:00 12/26/21 11:28 Famotidine 20 Mg Tab PO 20 mg DAILY ROSENDO Administration Heparin Sodium (Porcine) 5,000 unit 12/20/21 22:00 12/26/21 11:28 Heparin 5,000 Unit/1 Ml Vial SUB-Q 5,000 unit Q12HR ROSENDO Administration Hydromorphone HCl 0.5 mg 12/20/21 21:51 Hydromorphone 1 Mg/1 Ml Inj IV Q3H PRN Pain , Severe (7-10) Ceftriaxone Sodium 2 gm in 100 mls @ 200 mls/hr 12/21/21 14:00 12/25/21 15:46 Rocephin/Ns 2 Gm/100 Ml IV 12/27/21 14:29 200 mls/hr Q24H ROSENDO Administration Protocol Sodium Chloride 1,000 mls @ 50 mls/hr 12/25/21 18:00 12/26/21 11:28 Nacl 0.9% 1000 Ml IV 50 mls/hr DIRECT ROSENDO Administration Morphine Sulfate 2 mg 12/20/21 21:51 12/26/21 11:22 Morphine 2 Mg/1 Ml Inj IV 2 mg Q4H PRN Administration Pain, Moderate (4-6) Nifedipine 60 mg 12/23/21 10:00 12/26/21 11:27 Nifedipine Xl 60 Mg Tab PO 60 mg QDAY ROSENDO Administration Ondansetron HCl 4 mg 12/20/21 21:51 Ondansetron 4 Mg/2 Ml Inj IV Q8H PRN Nausea And Vomiting Sodium Bicarbonate 650 mg 12/24/21 14:00 12/26/21 08:27 Sodium Bicarbonate 650 Mg Tab PO 650 mg TID ROSENDO Administration Sodium Chloride 10 ml 12/20/21 22:00 12/26/21 11:29 Sodium Chloride 0.9% 10 Ml Flush Syringe IV 10 ml BID ROSENDO Administration Sodium Chloride 10 ml 12/20/21 21:51 Sodium Chloride 0.9% 10 Ml Flush Syringe IV PRN PRN LINE FLUSH
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
[2021-12-26] MEDS: cefTRIAXone/NS 2 GM/100 ML 2 GM/100 ML BAG IV SCH (13:47)
[2021-12-27] MEDS: SODIUM CHLORIDE 0.9% 1000 ML 1,000 ML IV SCH (06:40)
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
[2021-12-27] MEDS: IPRATROPIUM/ALBUTEROL SULFATE 3 ML AMPUL.NEB IH SCH ×3 (09:05→21:13)
[2021-12-27] MEDS: SODIUM BICARBONATE 650 MG TAB PO SCH ×3 (09:32→22:45)
[2021-12-27] MEDS: carvediloL 12.5 MG TAB PO SCH ×2 (09:32→22:45)
[2021-12-27] MEDS: HEPARIN 5,000 UNIT/1 ML VIAL SUB-Q SCH ×2 (09:32→22:46)
[2021-12-27] MEDS: NIFEdipine XL 60 MG TAB PO SCH (09:33)
[2021-12-27] MEDS: FAMOTIDINE 20 MG TAB PO SCH (09:33)
[2021-12-27] MEDS: MORPHINE 2 MG/1 ML INJ IV PRN (11:19)
--- NOTE | 2021-12-27 11:54 | Progress Note ---
Assessment and Plan Acute Renal Failure on top of CKD Metabolic acidosis S/P Hypoglycemia AMS Hypertension Diabetes Mellitus Anemia Plan: no significant change in Cr will increase sodium bicarb to 1300 mg TID tabs for acidosis good UOP Renal US -ve for obstruction, shows CKD signs Has history of DM And HTN so could have advanced CKD, also has proteinuria. ordered secondary nephrotic w/u with UPEP, SPEP, urine IFx, LULY, Anti-DsDNA, C3/C4, Hep panel, HIV Avoid nephrotoxic agents Renally dose medications Strict I/O's daily Obtain daily weights can be discharged and followed as an outpatient from renal standpoint Subjective Date of service: 12/27/21 Principal diagnosis: TO Interval history: appears comfortable Objective - Vital Signs Vital signs: Vital Signs - 12hr 12/27/21 12/27/21 12/27/21 00:54 04:00 05:05 Temperature 98.4 F 98.6 F Pulse Rate 87 86 86 Respiratory 18 18 Rate Blood Pressure 164/92 176/94 O2 Sat by Pulse 93 97 Oximetry 12/27/21 09:32 Temperature Pulse Rate 86 Respiratory Rate Blood Pressure 173/83 O2 Sat by Pulse Oximetry - General Appearance General appearance: well-developed, well-nourished, appears stated age EENT: ATNC, PERRL, mucous membranes moist Neck: no JVD, no carotid bruit Respiratory: Present: Clear to Ascultation. Absent: Rales, Ronchi Cardiology: regular, S1S2 Gastrointestinal: normoactive bowel sounds, no tenderness, no distended Integumentary: no rash, warm and dry Neurologic: no focal deficit, no asterixis Musculoskeletal: deferred Psychiatric: mood/affect appropriate - Lab 12/26/21 09:05 12/26/21 09:05 Most recent lab results Calcium 8.4 mg/dL (8.4-10.2) 12/26/21 09:05 Phosphorus 4.10 mg/dL (2.5-4.5) 12/22/21 07:51 Urine Creatinine 112.0 mg/dL (0.1-20.0) H 12/25/21 Unknown Urine Sodium 95 mmol/L 12/21/21 Unknown Urine Total Protein 675 mg/dL (5-11.8) H 12/25/21 Unknown Medications & Allergies - Medications Allergies/Adverse Reactions: Allergies Unable to Assess Allergy (Unverified 12/20/21 19:17) pt non verbal, AMS, unable to obtain history Home Medications: Home Medications Medication Instructions Recorded Confirmed Last Taken Type Aspirin 81 mg PO DAILY 12/23/21 12/23/21 12/13/21 History 12/13/21 Atorvastatin 40 mg PO HS 12/23/21 12/23/21 Unknown History Cholecalciferol (Vitamin D3) 100 mcg PO DAILY 12/23/21 12/23/21 12/13/21 History [Vitamin D3] Furosemide [Lasix TAB] 80 mg PO DAILY 12/23/21 12/23/21 12/12/21 History Isosorbide Dinitrate 20 mg PO TID 12/23/21 12/23/21 12/12/21 History QUEtiapine [SEROquel] 25 mg PO HS 12/23/21 12/23/21 12/12/21 History Sevelamer Carbonate 0.8 gram TID 12/23/21 12/23/21 12/12/21 History Sodium Bicarbonate 650 mg PO BID 12/23/21 12/23/21 12/12/21 History Tamsulosin [Flomax] 0.4 mg PO HS 12/23/21 12/23/21 12/12/21 History carvediloL [Coreg] 25 mg PO BID 12/23/21 12/23/21 12/12/21 History glipiZIDE 5 mg PO BID 12/23/21 12/23/21 Unknown History hydrALAZINE 50 mg PO TID 12/23/21 12/23/21 12/12/21 History metFORMIN 1,000 mg PO BID 12/23/21 12/23/21 Unknown History Active Medications: Generic Name Dose Route Start Last Admin Trade Name Freq PRN Reason Stop Dose Admin Acetaminophen 650 mg 12/20/21 21:51 Acetaminophen 325 Mg Tab PO Q4H PRN Pain MILD(1-3)/Fever >100.5/MELTON Albuterol 2.5 mg 12/20/21 21:51 Albuterol 2.5 Mg/3 Ml Nebu IH Q3HRT PRN Shortness Of Breath Albuterol/Ipratropium 1 ampul 12/22/21 08:00 12/26/21 20:55 Ipratropium/Albuterol Sulfate 3 Ml Ampul.Neb IH 1 ampul TIDRT ROSENDO Administration Carvedilol 12.5 mg 12/23/21 10:00 12/27/21 09:32 Carvedilol 12.5 Mg Tab PO 12.5 mg BID ROSENDO Administration Dextrose 50 ml 12/20/21 21:51 Dextrose 50% In Water (25gm) 50 Ml Syringe IV Q30MIN PRN Hypoglycemia Protocol Famotidine 20 mg 12/26/21 10:00 12/27/21 09:33 Famotidine 20 Mg Tab PO 20 mg DAILY ROSENDO Administration Heparin Sodium (Porcine) 5,000 unit 12/20/21 22:00 12/27/21 09:32 Heparin 5,000 Unit/1 Ml Vial SUB-Q 5,000 unit Q12HR ROSENDO Administration Hydromorphone HCl 0.5 mg 12/20/21 21:51 Hydromorphone 1 Mg/1 Ml Inj IV Q3H PRN Pain , Severe (7-10) Ceftriaxone Sodium 2 gm in 100 mls @ 200 mls/hr 12/21/21 14:00 12/26/21 13:47 Rocephin/Ns 2 Gm/100 Ml IV 12/27/21 14:29 200 mls/hr Q24H ROSENDO Administration Protocol Sodium Chloride 1,000 mls @ 50 mls/hr 12/25/21 18:00 12/27/21 06:40 Nacl 0.9% 1000 Ml IV 50 mls/hr DIRECT ROSENDO Administration Morphine Sulfate 2 mg 12/20/21 21:51 12/27/21 11:19 Morphine 2 Mg/1 Ml Inj IV 2 mg Q4H PRN Administration Pain, Moderate (4-6) Nifedipine 60 mg 12/23/21 10:00 12/27/21 09:33 Nifedipine Xl 60 Mg Tab PO 60 mg QDAY ROSENDO Administration Ondansetron HCl 4 mg 12/20/21 21:51 Ondansetron 4 Mg/2 Ml Inj IV Q8H PRN Nausea And Vomiting Sodium Bicarbonate 1,300 mg 12/27/21 14:00 Sodium Bicarbonate 650 Mg Tab PO TID ROSENDO Sodium Chloride 10 ml 12/20/21 22:00 12/27/21 09:52 Sodium Chloride 0.9% 10 Ml Flush Syringe IV 10 ml BID ROSENDO Administration Sodium Chloride 10 ml 12/20/21 21:51 Sodium Chloride 0.9% 10 Ml Flush Syringe IV PRN PRN LINE FLUSH
[2021-12-27] MEDS: cefTRIAXone/NS 2 GM/100 ML 2 GM/100 ML BAG IV SCH (13:35)
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
[2021-12-28] MEDS: IPRATROPIUM/ALBUTEROL SULFATE 3 ML AMPUL.NEB IH SCH ×2 (08:06→13:47)
[2021-12-28] MEDS: carvediloL 12.5 MG TAB PO SCH (09:19)
[2021-12-28] MEDS: FAMOTIDINE 20 MG TAB PO SCH (09:19)
[2021-12-28] MEDS: SODIUM BICARBONATE 650 MG TAB PO SCH ×2 (09:19→13:50)
[2021-12-28] MEDS: NIFEdipine XL 60 MG TAB PO SCH (09:20)
[2021-12-28] MEDS: HEPARIN 5,000 UNIT/1 ML VIAL SUB-Q SCH (09:20)
--- NOTE | 2021-12-28 13:17 | Progress Note ---
Assessment and Plan Assessment: Severe Renal Failure, questionable CKD S/P Hypoglycemia AMS Hypertension Diabetes Mellitus Anemia Plan: No new renal labs noted for today. Most recent serum creatinine was 5.1. Baseline serum creatinine unknown. Has history of DM And HTN so could have advanced CKD Renal US was negative for obstruction, shows CKD signs Avoid nephrotoxic agents Renally dose medications Strict I/O's daily Obtain daily weights Patient being discharged to today on home hospice with [facility] facility Plan of care reviewed by Dr. Barbosa Subjective Date of service: 12/28/21 Principal diagnosis: TO Interval history: Patient seen sitting up in bed. No family at bedside. Tech at bedside doing bed linen change. Objective - Vital Signs Vital signs: Vital Signs - 12hr 12/28/21 12/28/21 12/28/21 04:02 05:00 07:25 Temperature 97.9 F 98.5 F Pulse Rate 75 80 Pulse Rate [ Bilateral] Pulse Rate [ Radial] Respiratory 16 18 Rate Respiratory Rate [Bilateral ] Blood Pressure 116/64 135/76 O2 Sat by Pulse 97 98 96 Oximetry 12/28/21 12/28/21 12/28/21 08:00 08:08 08:22 Temperature Pulse Rate Pulse Rate [ 76 Bilateral] Pulse Rate [ 66 Radial] Respiratory 18 Rate Respiratory 18 Rate [Bilateral ] Blood Pressure O2 Sat by Pulse 97 98 Oximetry 12/28/21 12:24 Temperature 97.8 F Pulse Rate Pulse Rate [ Bilateral] Pulse Rate [ Radial] Respiratory 18 Rate Respiratory Rate [Bilateral ] Blood Pressure 109/59 O2 Sat by Pulse Oximetry - General Appearance General appearance: other (No acute distress, awake) EENT: ATNC Neck: no JVD, supple Respiratory: Present: Decreased Breath Sounds Cardiology: S1S2 Gastrointestinal: normoactive bowel sounds Integumentary: warm and dry Neurologic: other (Awake) Musculoskeletal: other (Bilateral BKA) - Lab 12/26/21 09:05 12/26/21 09:05 Most recent lab results Calcium 8.4 mg/dL (8.4-10.2) 12/26/21 09:05 Phosphorus 4.10 mg/dL (2.5-4.5) 12/22/21 07:51 Urine Creatinine 112.0 mg/dL (0.1-20.0) H 12/25/21 Unknown Urine Sodium 95 mmol/L 12/21/21 Unknown Urine Total Protein 675 mg/dL (5-11.8) H 12/25/21 Unknown Medications & Allergies - Medications Allergies/Adverse Reactions: Allergies Unable to Assess Allergy (Unverified 12/20/21 19:17) pt non verbal, AMS, unable to obtain history Home Medications: Home Medications Medication Instructions Recorded Confirmed Last Taken Type Aspirin 81 mg PO DAILY 12/23/21 12/23/21 12/13/21 History 12/13/21 Atorvastatin 40 mg PO HS 12/23/21 12/23/21 Unknown History Cholecalciferol (Vitamin D3) 100 mcg PO DAILY 12/23/21 12/23/21 12/13/21 History [Vitamin D3 2,000 UNIT CHEW TAB] Furosemide [Lasix TAB] 80 mg PO DAILY 12/23/21 12/23/21 12/12/21 History Isosorbide Dinitrate 20 mg PO TID 12/23/21 12/23/21 12/12/21 History QUEtiapine [SEROquel] 25 mg PO HS 12/23/21 12/23/21 12/12/21 History Sevelamer Carbonate 0.8 gram TID 12/23/21 12/23/21 12/12/21 History Tamsulosin [Flomax] 0.4 mg PO HS 12/23/21 12/23/21 12/12/21 History glipiZIDE 5 mg PO BID 12/23/21 12/23/21 Unknown History hydrALAZINE 50 mg PO TID 12/23/21 12/23/21 12/12/21 History metFORMIN 1,000 mg PO BID 12/23/21 12/23/21 Unknown History NIFEdipine XL [Procardia Xl] 60 mg PO QDAY 30 Days #30 tablet 12/28/21 Unknown Rx Sodium Bicarbonate 1,300 mg PO TID 30 Days #180 tablet 12/28/21 Unknown Rx carvediloL [Coreg] 12.5 mg PO BID 30 Days #60 tablet 12/28/21 Unknown Rx Active Medications: Generic Name Dose Route Start Last Admin Trade Name Freq PRN Reason Stop Dose Admin Acetaminophen 650 mg 12/20/21 21:51 Acetaminophen 325 Mg Tab PO Q4H PRN Pain MILD(1-3)/Fever >100.5/MELTON Albuterol 2.5 mg 12/20/21 21:51 Albuterol 2.5 Mg/3 Ml Nebu IH Q3HRT PRN Shortness Of Breath Albuterol/Ipratropium 1 ampul 12/22/21 08:00 12/28/21 08:06 Ipratropium/Albuterol Sulfate 3 Ml Ampul.Neb IH 1 ampul TIDRT ROSENDO Administration Carvedilol 12.5 mg 12/23/21 10:00 12/28/21 09:19 Carvedilol 12.5 Mg Tab PO 12.5 mg BID ROSENDO Administration Dextrose 50 ml 12/20/21 21:51 Dextrose 50% In Water (25gm) 50 Ml Syringe IV Q30MIN PRN Hypoglycemia Protocol Famotidine 20 mg 12/26/21 10:00 12/28/21 09:19 Famotidine 20 Mg Tab PO 20 mg DAILY ROSENDO Administration Heparin Sodium (Porcine) 5,000 unit 12/20/21 22:00 12/28/21 09:20 Heparin 5,000 Unit/1 Ml Vial SUB-Q 5,000 unit Q12HR ROSENDO Administration Hydromorphone HCl 0.5 mg 12/20/21 21:51 Hydromorphone 1 Mg/1 Ml Inj IV Q3H PRN Pain , Severe (7-10) Morphine Sulfate 2 mg 12/20/21 21:51 12/27/21 11:19 Morphine 2 Mg/1 Ml Inj IV 2 mg Q4H PRN Administration Pain, Moderate (4-6) Nifedipine 60 mg 12/23/21 10:00 12/28/21 09:20 Nifedipine Xl 60 Mg Tab PO 60 mg QDAY ROSENDO Administration Ondansetron HCl 4 mg 12/20/21 21:51 Ondansetron 4 Mg/2 Ml Inj IV Q8H PRN Nausea And Vomiting Sodium Bicarbonate 1,300 mg 12/27/21 14:00 12/28/21 09:19 Sodium Bicarbonate 650 Mg Tab PO 1,300 mg TID ROSENDO Administration Sodium Chloride 10 ml 12/20/21 22:00 12/28/21 09:20 Sodium Chloride 0.9% 10 Ml Flush Syringe IV 10 ml BID ROSENDO Administration Sodium Chloride 10 ml 12/20/21 21:51 Sodium Chloride 0.9% 10 Ml Flush Syringe IV PRN PRN LINE FLUSH
[2021-12-28 18:52] VITALS: BP 90/59
[2021-12-29 05:26] LABS: Albumin 3.4 g/dL (3.8-4.8)
[2021-12-29 11:57] LABS: ANA Screen, IFA Negative (Negative)
== END 2021-12-28 18:05 | disposition hospice, home (50) | DRG 637 ==
LOC: ED 18:30 → 4A 21:51
PROVIDERS: ADMIT Hospitalist; ATTEND Student in an Organized Health Care Education/Training Program
DX: E11.649 Type 2 diabetes mellitus with hypoglycemia without coma (principal); G93.41 Metabolic encephalopathy; J96.01 Acute respiratory failure with hypoxia; N30.00 Acute cystitis without hematuria; N17.9 Acute kidney failure, unspecified; E83.51 Hypocalcemia; D64.9 Anemia, unspecified; E87.2 Acidosis; I12.9 Hypertensive chronic kidney disease with stage 1 through stage 4 chronic kidney disease, or unspecified chronic kidney disease; N18.9 Chronic kidney disease, unspecified; E44.1 Mild protein-calorie malnutrition; Z89.512 Acquired absence of left leg below knee; Z89.511 Acquired absence of right leg below knee; G40.909 Epilepsy, unspecified, not intractable, without status epilepticus; N18.4 Chronic kidney disease, stage 4 (severe); R77.8 Other specified abnormalities of plasma proteins; Z68.23 Body mass index [BMI] 23.0-23.9, adult
CPT/HCPCS: 36415; 70450; 71045; 76770; 80048; 80053; 80074; 80320; 81001; 82140; 82550; 82553; 82570; 82962; 83036; 83880; 83970; 84100; 84156; 84165; 84166; 84300; 84484; 85007; 85025; 85610; 85670; 85730; 86038; 86160; 86225; 86334; 87040; 87086; 87806; 89050; 93005; 93306; 94640; 94760; G0378; J3490; Q0162; C8929; G0480; J0696; J1644; J1953; J2270; J7030